=== PATIENT | female | born 1950 | race Caucasian/White ===

== ENCOUNTER 2020-01-19 08:41 | Observation (INO) | payer MEDICARE, OTHER ==
[~2020-01-19] VITALS: Ht 175.3 cm; Wt 122.5 kg
[~2020-01-19 08:41] MED LIST: APIDRA100 UNIT/2 SUB-Q; APRIDA; BUTALB-ACETAMI1 EACH PO; CYCLOBENZAPRINE10 MG PO; FAMOTIDINE20 MG PO; GLUCAGON EMERGEN1 MG INJ; HYDROXYZINE PAM50 MG PO; LANSOPRAZOLE30 MG PO; LEVOTHYROXINE200 MCG PO; LEVOXYL137 MCG PO; LIPITOR20 MG PO; LOMOTIL TABLET1 EACH PO; MUCINEX1200 MG PO; MULTI VITAMIN1 EACH PO; NARCAN4 MG NAS; OXYBUTYNIN CHLO10 MG PO; PREVACID30 MG PO; PROMETHAZINE HC25 M1 PO; REGLAN10 MG PO; SIMVASTATIN40 MG PO; TRAZODONE HCL50 MG PO; ULTRAM50 MG PO; VITAMIN D32000 UNI1 PO
--- OUTSIDE RECORDS SUMMARY | 2020-01-19 08:44 | XMS ---
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 E.DEzekiel VISIT COUNT (12 MO.) 1 SYLVAIN Mullen TOTAL 1 NOTE: Visits indicate total known visits. ED/UCC VISIT TRACKING (12 MO.) 01/19/2020 08:42 SYLVAIN [facility] [place] TYPE: Emergency COMPLAINT: - SOB, NAUSEA/VOMITING, ACHES/PAINS INPATIENT VISIT TRACKING (12 MO.) No inpatient visits to display in this time frame [email or web address]
[2020-01-19] MEDS ORDERED: APIDRA100 UNIT/2 (13:41)
[2020-01-19] MEDS ORDERED: MACRODANTIN100 MG PO (13:44)
[2020-01-19] MEDS ORDERED: MYRBETRIQ25 MG PO (13:45)
[2020-01-19] MEDS ORDERED: FIASP PENF100 UNIT/1 (13:46)
[2020-01-19] MEDS ORDERED: VENTOLIN HFA18 GM PO (13:50)
[2020-01-19] MEDS ORDERED: VOLTAREN100 GM TOP (13:52)
--- NOTE | 2020-01-19 13:55 | NUR ---
PT TO ROOM 126 VIA BINA CALVIN. PT TRANSFERED SELF TO BED.
--- NOTE | 2020-01-19 14:27 | NUR ---
PT UP TO BSC FOR LARGE BM. PTS O2 SATS DROPPED TO 84% WHILE UP TO COMMODE. RECOVERED ON HER OWN TO 91%. PT REPORTS SHE DOES NOT WANT TO WEAR THE OXYGEN NC AT THIS TIME LONG SHE MAINTAINS ON HER OWN.
--- NOTE | 2020-01-19 14:58 | NUR ---
REPORT TO RAUL PEREZ
--- NOTE | 2020-01-19 15:36 | NUR ---
patient lying on left side in bed. curious about further tests/exams to be done today. informed her of the plan for the day. slight nausea at times. reports cramping in her stomach and diarhea that is new.
--- NOTE | 2020-01-19 16:40 | NUR ---
5.52 units given via insulin pump for blood sugar of 232.
--- NOTE | 2020-01-19 19:20 | NUR ---
SHIFT REPORT RECEIVED FROM DUANE PEREZ. PT RESTING IN BED. NC @ 2L, SPO2 94%, RR 17. NO NEEDS AT THIS TIME. CALL LIGHT IN REACH.
--- NOTE | 2020-01-19 20:45 | NUR ---
ASSESSMENT, VS AND I&O COMPLETED. SPO2 94% ON 2L NC. UNABLE TO ASSESS, LUNG, HEART OR BOWEL TONES DUE TO PAPR. PULSES INTACT X4 EXTREMITIES. PT REPORTS CHRONIC NUMBNESS IN BLE. MOTOR INTACT IN ALL EXTREMITIES. IV CDI, WNL, FLUSHED WELL. HR SR @ 74. CAPILLARY REFILL < 3 SECONDS. PT UP TO BR, 1PA, BACK TO BED. URINE IS YELLOW, CLEAR, WITHOUT ODOR OR DYSUREA. PT REPORTS 5/10 ALVAREZ PAIN, PRN PAIN MED PROVIDED. PT REPORTS NAUSEA, PRN NAUSEA MED PROVIDED. SLEEP AID MED PROVIDED AT PT REQUEST. ICE WATER PROVIDED. NO OTHER NEEDS AT THIS TIME. CALL LIGHT IN REACH.
--- NOTE | 2020-01-19 22:00 | NUR ---
PT RESTING IN BED, EYES CLOSED. RR 22 EVEN, UNLABORED, SPO2 95% ON 2L NC. HR SR @ 90. CALL LIGHT IN REACH.
--- NOTE | 2020-01-20 00:01 | NUR ---
ASSESSMENT, VS AND I&O COMPLETED. NEW BAG OF IV FLUIDS PROVIDED, IV WNL, CDI. UNABLE TO ASSESS LUNG, HEART AND BOWEL TONES DUE TO PAPR. PT STATES SHE HAS MILD NAUSEA, NECK AND UPPER BACK MUSCLE SPASMS AND 4/10 ALVAREZ, FLEXERIL PROVIDED. SALTINES AND SUGAR FREE PUDDING PROVIDED. PT DECLINES TO USE BR AT THIS TIME. PT DENIES SOB AT THIS TIME, SPO2 95% ON 2L NC, TITRATED TO 1.5L NC. RR 22, EVEN, UNLABORED. HR SR @ 92. CBG 120 ON PATIENT'S OWN IMPLANTED DEVICE. PULSES AND MOTOR INTACT. CHRONIC NUMBNESS TO BLE UNCHANGED. NO OTHER NEEDS AT THIS TIME. CALL LIGHT IN REACH.
--- NOTE | 2020-01-20 01:19 | NUR ---
PT AWAKE IN ROOM, PLAYING ON PHONE. NC @ 1.5L, SPO2 94%, RR 24. HR SR @ 90. CALL LIGHT IN REACH.
--- NOTE | 2020-01-20 02:36 | NUR ---
PT RESTING IN BED, EYES CLOSED. RR 21, SPO2 95% ON 1.5L NC. HR SR @ 82. IV FLUIDS INFUSING PER ORDER. CALL LIGHT IN REACH.
--- NOTE | 2020-01-20 03:30 | NUR ---
PT RESTING IN BED, EYES CLOSED. RR 22, SPO2 95 ON NC @1.5L. HR SR @ 78. IV FLUIDS INFUSING PER ORDER. CALL LIGHT IN REACH.
--- NOTE | 2020-01-20 04:50 | NUR ---
PT RESTING IN BED, EYES CLOSED. RR 20, SPO2 92 ON NC @ 1.5L. HR SR @ 77. IV FLUIDS INFUSING PER ORDER. CALL LIGHT IN REACH.
--- NOTE | 2020-01-20 06:00 | NUR ---
ASSESSMENT, VS, I&O AND BLOOD DRAW COMPLETED, BLOOD SENT TO LAB. SPO2 95% ON 1.5L, TITRATED TO 1L. PT DID NOT HAVE SOB WITH TRIP TO AND BACK TO BED. IV WNL, CDI, CLAVE CHANGED. UNABLE TO ASSESS LUNG, HEART AND BOWEL TONES DUE TO PPE. SCHEDULED MED PROVIDED. PT HAS 6/10 ALVAREZ, TYLENOL PROVIDED. PT HAS NAUSEA, SCHEDULED MED PROVIDED. CHRONIC NUMBNESS IN BLE. MOTOR AND PULSES INTACT. IV FLUIDS INFUSING PER ORDER. PT STATES "I FEEL MUCH BETTER TODAY!" PT IS PROVIDED PUDDING AND COFFEE AT HER REQUEST. BLOOD GLUCOSE 87. PT DENIES ABD TENDERNESS AT THIS TIME. NO OTHER NEEDS AT THIS TIME. CALL LIGHT IN REACH.
--- NOTE | 2020-01-20 07:08 | PATH ---
[facility] [address], [place] [address] Signed ORDERING PHYSICIAN: Kala Martin MD PATIENT NAME: TERRI MEJIA GENDER: F : 1950 SPECIMEN(S): MOLECULAR PATHOLOGY RESULTS: SARS-CoV-2 Not Detected ADDITIONAL NOTES.: The Gaffney Fusion SARS-CoV-2 Assay is a multiplex real-time PCR (RT-PCR) in vitro diagnostic test intended for the qualitative detection of RNA from SARS-CoV-2 from individuals who meet COVID-19 clinical and/or epidemiological criteria. In general, SARS-CoV-2 RNA can be detected during the acute phase of infection. Positive results indicate the presence of SARS-CoV-2 RNA. Clinical correlation with patient history and other diagnostic information is necessary to determine patient infection status. Positive results do not rule out bacterial infection or co-infection with other viruses. Negative results do not preclude SARS-CoV-2 infection and should not be used as the sole basis for patient management decisions. Negative results must be combined with other clinical observations, patient history, and epidemiological information. The Gaffney Fusion SARS-CoV-2 Assay is not yet approved or cleared by the [place] FDA. When there are no FDA-approved or cleared tests available, and other criteria are met, FDA can make tests available under an emergency access mechanism called an Emergency Use Authorization (EUA). The EUA for this test is supported by the [place] of Health and Human Service's (HHS's) declaration that circumstances exist to justify the emergency use of in vitro diagnostics for the detection and/or diagnosis of the virus that causes COVID-19. This EUA will remain in effect for the duration of the COVID-19 declaration justifying emergency of IVDs, unless it is terminated or revoked by FDA, after which the test may no longer be used. The Gaffney Fusion SARS-CoV-2 Assay is for use only under EUA in US laboratories certified under the Clinical Laboratory Improvement Amendments of 1988 (CLIA) to perform high complexity tests. [facility] is certified under CLIA to perform high complexity PATIENT NAME: TERRI MEJIA PATHOLOGY DATE OF : [birth year] REPORT #: [id number] PHYSICIAN: ÓSCAR PATHOLOGY PCP: JANELLE CHU MD REPORT IS CONFIDENTIAL AND NOT TO BE RELEASED WITHOUT AUTHORIZATION [address] [address] Signed clinical laboratory testing. PERFORMING LABORATORY.: Molecular testing was performed by [facility] [place] [address] (Physical Education Professor: Garcia Ann D.O.; CLIA#: [id number]) Diagnostician: System Interface Pathologist Electronically Signed 01/20/2020 Copies: ~ PATIENT NAME: JEROME MEJIALEMUEL HOOD PATHOLOGY DATE OF : 50 REPORT #: [id number] PHYSICIAN: ÓSCAR BAUTISTA PCP: JANELLE CHU MD REPORT IS CONFIDENTIAL AND NOT TO BE RELEASED WITHOUT AUTHORIZATION
--- NOTE | 2020-01-20 09:22 | NUR ---
PT RESTING IN HER BED AND STATES HER ALVAREZ IS "BETTER" AT THIS TIME. SHE DID COMPLAIN OF SOME NAUSEA AND WAS MEDICATED ORDERED. PT DENIES ANY OTHER PROBLEMS TO INCLUDE NO SOB. SAT ON 1L WAS 97% AND O2 WAS REMOVED. SAT NOW ON RA IS 93%. UNABLE TO LISTEN TO HEART, LUNGS, AND ABD DUE TO PAPR. PT DENIES ANY PROBLEMS IN ANY OF THESE AREAS. SEE ASSESSMENT.
--- NOTE | 2020-01-20 11:02 | NUR ---
Pt resting her bed, she states her ALVAREZ is much better. She states she continues to have some nausea and was recently medicated, see emar. Pt denies any other problems.
--- NOTE | 2020-01-20 12:57 | NUR ---
BECAUSE OF COVID PRECAUTIONS, I AM UNABLE TO VISIT. WILL CONTINUE TO FOLLOW
--- NOTE | 2020-01-20 13:29 | NUR ---
PT RESTING IN HER BED AND STATES HER NAUSEA IS "GOOD" AFTER HAVING ATE LUNCH. SHE DENIES ANY OTHER NEW PROBLEMS.
[2020-01-20] MEDS ORDERED: KEFLEX500 MG PO (13:50)
--- NOTE | 2020-01-20 14:57 | NUR ---
Pt and her spouse given the discharge instructions with good understanding stated.
--- NOTE | 2020-01-20 21:21 | EKG ---
[facility] [address] [facility] [place], [place] [address] Signed Sinus tachycardia Otherwise normal ECG When compared with ECG of 24-JUN-2019 13:02, Vent. rate has increased BY 50 BPM Confirmed by MARLENI VANEGAS DO ([id number]) on 01/20/2020 9:21:35 PM Electronically Signed By: MARLENI VANEGAS DO 01/20/202120 PATIENT NAME: ROBERTOTERRILEMUEL HOOD Electrocardiogram DATE OF : 50 PHYSICIAN: MARLENI VANEGAS DO REPORT #: [id number] REPORT IS CONFIDENTIAL AND NOT TO BE RELEASED WITHOUT AUTHORIZATION
== END 2020-01-20 15:17 | disposition home or self-care (01) ==
LOC: ED 08:41 → CCU 08:43 → ED 12:41 → CCU 12:41
PROVIDERS: ADMIT Internal Medicine
DX: R06.02 Shortness of breath (principal); R00.0 Tachycardia, unspecified; D72.829 Elevated white blood cell count, unspecified; N39.0 Urinary tract infection, site not specified; E10.43 Type 1 diabetes mellitus with diabetic autonomic (poly)neuropathy; K31.84 Gastroparesis; E10.22 Type 1 diabetes mellitus with diabetic chronic kidney disease; N18.3 Chronic kidney disease, stage 3 (moderate); E03.9 Hypothyroidism, unspecified; E78.5 Hyperlipidemia, unspecified; R74.8 Abnormal levels of other serum enzymes; M79.7 Fibromyalgia; G89.4 Chronic pain syndrome; Z20.828 Contact with and (suspected) exposure to other viral communicable diseases; Z88.8 Allergy status to other drugs, medicaments and biological substances; Z88.0 Allergy status to penicillin; Z88.5 Allergy status to narcotic agent; Z79.899 Other long term (current) drug therapy
CPT/HCPCS: 71045; 71260; 80053; 83605; 83735; 83880; 84484; 85025; 85379; 93005; 93010; 93306; 96361; 96372; 99285-25; A9270; C9803; G0378; J0696; J1650; J2405; J2550; J7030; J7121; Q9967

== ENCOUNTER 2020-02-01 02:49 | Emergency (ER) | payer MEDICARE, OTHER ==
[~2020-02-01] VITALS: Ht 175.3 cm; Wt 120.2 kg
[~2020-02-01 02:49] MED LIST changes: +APIDRA100 UNIT/2; +FIASP PENF100 UNIT/1; +KEFLEX500 MG PO; +MACRODANTIN100 MG PO; +MYRBETRIQ25 MG PO; +VENTOLIN HFA18 GM PO; +VOLTAREN100 GM TOP
--- OUTSIDE RECORDS SUMMARY | 2020-02-01 02:52 | XMS ---
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 Care History Medical/Surgical 01/20/2020 [facility] - Patient is currently established with [facility]. If patient is seen in the ED during business hours. Please contact CHWs at [facility]. Care Recommendation: If this patient has had 5 or more Emergency Department visits in the last 12 months.\T\nbsp; Patient will require education on the scope and purpose of the ED as an acute care provider not a Primary Care Provider and should not be utilized for chronic conditions.\T\nbsp; These are guidelines and the provider should exercise clinical judgment when providing care. 01/20/2020 [facility] Shortness of breath for 12 hours.\T\nbsp; Pt admitted under observation awaiting COVID 19 test results. [facility] NOTE: Visits indicate total known visits. 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
[2020-02-01] MEDS ORDERED: NORCO 5-325 TA1 EACH PO (04:31)
== END 2020-02-01 05:10 | disposition home or self-care (01) ==
LOC: ED 02:49
PROC: 0QSGXZZ Reposition Right Tibia, External Approach (ICD-10-PCS; principal; 2020-02-01)
PROC: 0QSJXZZ Reposition Right Fibula, External Approach (ICD-10-PCS; 2020-02-01)
PROC: 0QSGXZZ Reposition Right Tibia, External Approach (ICD-10-PCS; 2020-02-01)
DX: S82.851A Displaced trimalleolar fracture of right lower leg, initial encounter for closed fracture (principal); E11.40 Type 2 diabetes mellitus with diabetic neuropathy, unspecified; E11.43 Type 2 diabetes mellitus with diabetic autonomic (poly)neuropathy; K31.84 Gastroparesis; E03.9 Hypothyroidism, unspecified; Z87.891 Personal history of nicotine dependence; Z88.8 Allergy status to other drugs, medicaments and biological substances; Z88.0 Allergy status to penicillin; Z88.5 Allergy status to narcotic agent; Z79.899 Other long term (current) drug therapy; Z79.4 Long term (current) use of insulin; W19.XXXA Unspecified fall, initial encounter
CPT/HCPCS: 27818; 73600; 73610; 99283-25; J2405; J2704; J3010

== ENCOUNTER 2020-07-24 05:40 | Day surgery (SDC) | payer MEDICARE ==
--- NOTE | 2020-07-20 17:30 | NUR ---
SAW PT IN THE PRE ADMIT OFFICE DUE TO DR MCNEIL OFFICE ADDED PT TO SURGERY SCHEDULE AFTER 16:00 ON THIS DAY. HAD PT RECEIVE A CXR, EKG AN OUT PATIENT DUE TO UNABLE TO OBTAIN SURGICAL ACCOUNT.
[~2020-07-24] VITALS: Ht 175.3 cm; Wt 120.0 kg
[~2020-07-24 05:40] MED LIST changes: +NORCO 5-325 TA1 EACH PO
[2020-07-24] MEDS ORDERED: PREVACID30 M1 PO (06:03)
[2020-07-24] MEDS ORDERED: OXYBUTYNIN CHLO10 MG PO (06:03)
[2020-07-24] MEDS ORDERED: VITAMIN D325 MCG PO (06:04)
[2020-07-24] MEDS ORDERED: CALCIUM500 MG PO (06:04)
--- NOTE | 2020-07-24 09:29 | NUR ---
PT ALERT, ORIENTED AND HAS WAITING IN CAR FOR HER FOLLOWING DC. PT SEEMS INFORMED, ALL QUESTIONS ASKED ANSWERED. PT DID REQUEST PRAYER.
--- NOTE | 2020-07-24 11:37 | NUR ---
07/24/20 1137 Glenna Cheung 1046 PT ARRIVED IN PACU NON RESPONSIVE TO NOXIOUS STIMULI WITH OPA IN PLACE. 1055 PT REACTIVE. OPA REMOVED. 1100 PT ATTACHED OWN INSULIN PUMP. BLOOD SUGAR 198. 1110 DR AT BEDSIDE. NEW ORDER TO TROY ELLIS AT 1130. 1125 TO DS. REPORT GIVEN TO ANA.
--- NOTE | 2020-07-24 11:43 | NUR ---
PT TO ROOM VIA STRETCHER WITH ANA ANDERSON. PT AWAKE AND ORIENTED. DENIES PAIN. VS STABLE. REMOVED ELLIS PER ORDER AT 1140. HAD APPROX 125ML LIGHT PINK URINE IN BAG. PT PUT HER DEPENDS ON SHE LEAKS. CALL LIGHT IN REACH. HER INSULIN PUMP READS 199.
[2020-07-24] MEDS ORDERED: CEFDINIR300 MG PO (12:38)
[2020-07-24] MEDS ORDERED: ULTRAM50 MG PO (12:39)
--- NOTE | 2020-07-24 12:58 | NUR ---
PT DISCHARGED HOME WITH . PT ABLE TO DRESS WITH ASSISTANCE OF . DENIES CONCERNS. WAS ABLE TO VOID WO DIFFICULTY. IV REMOVED BY RNS JOVON. WHEELED TO CAR.
--- NOTE | 2020-07-31 09:35 | OR ---
[address] [address] Signed DATE OF OPERATION: 07/24/2020 SURGEON: Zahra Mcneil MD PREOPERATIVE DIAGNOSES: 1. Incidental finding of severe left hydroureteronephrosis. 2. Recurrent urinary tract infections. 3. Urinary incontinence. POSTOPERATIVE DIAGNOSES: 1. Incidental finding of severe left hydroureteronephrosis. 2. Recurrent urinary tract infections. 3. Urinary incontinence. 4. Denuded bladder lesion x2. NAMES OF PROCEDURES: 1. Diagnostic cystoscopy with bilateral retrograde pyelogram. 2. Left diagnostic ureteroscopy. 3. Insertion of indwelling left ureteral stent. 4. Bladder biopsy. ANESTHESIA: General. ESTIMATED BLOOD LOSS: Minimal. COMPLICATIONS: None. SPECIMENS: Approximately 5 samples of bladder wall specimens taken in areas of well-circumscribed denuded bladder mucosa. DRAINS: A 6 x 26 cm double-J ureteral stent inserted into the left ureter. COMPLICATIONS: None. Electronically Signed By: ZAHRA MCNEIL MD 07/31/20 0935 PATIENT NAME: TERRI ULLOA OPERATIVE REPORT DATE OF : 50 REPORT #: [id number] PHYSICIAN: ZAHRA MCNEIL MD PCP: LILLY CROWLEY MD REPORT IS CONFIDENTIAL AND NOT TO BE RELEASED WITHOUT AUTHORIZATION [address] [address] Signed INDICATIONS FOR PROCEDURE: Ms. Ulloa is a very pleasant 70-year-old female with a history of nephrolithiasis and multiple abdominal surgeries, who recently presented to me upon referral from Dr. Lilly Crowley for evaluation of recurrent urinary tract infections and urinary incontinence symptoms. As part of her workup, she underwent a renal bladder ultrasound, which incidentally revealed [id number] hydronephrosis of the left kidney. The patient immediately underwent a noncontrast CT of the abdomen and pelvis. She did not receive any IV contrast because of her chronic kidney disease. A CT scan revealed a severely hydronephrotic left kidney with a sudden change in caliber of her severely dilated left ureter around 2 cm above the bladder. There was no obvious stone noted as the cause for her obstruction. Of note, however, there were a couple of stones noted within the left renal pelvis at that time, but these were not obstructing. The patient denies any flank pain or recent gross hematuria. However, she has been experiencing urinary tract infections for quite some time now. Of note, she did pass a kidney stone on the left side successfully in 2017. She presents today to undergo further evaluation of her hydronephrosis and to undergo likely ureteral stent implantation. OPERATIVE FINDINGS: 1. On cystoscopy, there was no evidence of any overt bladder masses, however, there are 2 well-circumscribed 3 to 4 cm sized well-denuded bladder lesions that are quite impressive. One is located just above the trigone of the bladder and the other one is on the posterior wall of the bladder. As stated, they appear to be actively denuded areas of bladder mucosa and are very well circumscribed. Bilateral ureteral orifices are in their normal anatomic location and the right ureteral orifice is noted to be effluxing normally. I do not appreciate any efflux from the left ureteral orifice. 2. Right retrograde pyelogram was performed, which revealed a normal ureter and renal pelvis without any calyceal blunting or filling defects. Left retrograde pyelogram revealed an approximately 1 cm narrowing of the left ureter. Proximal to the narrowing, there was severe dilation of the left ureter and left kidney. It was severe enough that it was difficult to injecting of contrast into the system for it to be noticeable on pyelogram. 3. Diagnostic ureteroscopy revealed what appeared to be a tight area about 2 cm above the bladder consists, mostly consistent with what appears to be a stricture. There is also a lot of denuded necrotic tissue associated with this area. Once within the proximal ureter, there was also noted a significant amount of denuded and necrotic tissue noted that seems to be coming from the left renal pelvis. 4. A 6 x 26 cm double-J ureteral stent was passed into the left collecting system without difficulties. 5. A cold cup biopsy forceps was used to obtain multiple specimens from both well-circumscribed lesions within the bladder. At the end the procedure, an 18-Belgian Adhikari catheter was inserted into the patient's bladder and connected to gravity drainage. Electronically Signed By: ZAHRA MCNEIL MD 07/31/20 0935 PATIENT NAME: TERRI ULLOA OPERATIVE REPORT DATE OF : 50 REPORT #: [id number] PHYSICIAN: ZAHRA MCNEIL MD PCP: LILLY CROWLEY MD REPORT IS CONFIDENTIAL AND NOT TO BE RELEASED WITHOUT AUTHORIZATION [address] [address] Signed DESCRIPTION OF PROCEDURE: After informed consent was obtained, the patient was taken back to the operating room. She was transferred from the [facility] to the operating room where general anesthesia was then induced. She was placed in the dorsal lithotomy position and her genitalia were prepped and draped in a standard sterile fashion. Using a 30-degree lens on a 23-1/2-Belgian introducer, rigid cystoscope was inserted through her urethra and into her bladder under direct visualization. Panendoscopic views of the bladder were then obtained. Please see above findings. Despite noting the denuded areas of epithelium, I chose to focus on the left ureter at this time. Bilateral retrograde pyelograms were then performed, the right being performed 1st and then followed by the left retrograde pyelogram. Please see above findings. I then advanced a semi-rigid ureteroscope into the bladder and up into the left ureteral orifice. Immediately upon entering the ureter, there was a minor amount of hemorrhage noted and it appeared to me that the left distal ureter and ureteral orifice were extremely friable due to some type of inflammation. This was noted at the time of the left retrograde pyelogram. I advanced my scope a couple of cm up and then I hit what appeared to be a kink in the ureter. I found my way through the passage and noted that it got fairly stenotic for about a cm or so. I passed the scope into the dilated ureter proximal to the stricture. I then was able to appreciate a significant amount of necrotic and denuded tissue suggesting that this kidney had not been draining properly for quite some time. Because of all the irritation and inflammation of the distal left ureter, I made the decision to forego additional ureteroscopy and instead place a stent to help drain the significant amount of material noted within the left collecting system. I passed a 0.035 Sensor wire into the left ureter using the ureteroscope. The semi-rigid ureteroscope was then removed fully intact. Over the existing wire, I passed a 6 x 26 cm double-J ureteral stent into the left ureter under direct visualization. The stent passed easily and an adequate proximal coil was noted within the left renal pelvis once the wire was pulled. An adequate distal coil was noted on cystoscopy. I then turned my attention to the 2 well-circumscribed denuded lesions in the bladder. A cold cup biopsy forceps was used to obtain around 5 separate specimens from areas in both lesions. Again, the lesions did not appear to be carcinogenic. However, they appear more to be related to an infectious process. The lesions are pale in appearance and appeared to be actively denuding bladder mucosa. Once the biopsies are obtained, I did cauterize the biopsy beds using a Bugbee cautery. The patient's bladder was then drained and then a repeat cystoscopy was performed to ensure that adequate hemostasis had been achieved. The cystoscope was then removed and then an 18-Belgian 2-way Adhikari catheter was inserted and connected to gravity drainage. The procedure was then terminated. The patient tolerated the procedure well without any complication. She will now be transferred to the postanesthesia care unit in stable condition. DISPOSITION: Electronically Signed By: ZAHRA MCNEIL MD 07/31/20 0935 PATIENT NAME: TERRI ULLOA OPERATIVE REPORT DATE OF : 50 REPORT #: [id number] PHYSICIAN: ZAHRA MCNEIL MD PCP: LILLY CROWLEY MD REPORT IS CONFIDENTIAL AND NOT TO BE RELEASED WITHOUT AUTHORIZATION [address] [address] Signed I discussed the details of today's procedure with both the patient and her and answered all of their questions. I told them that at this time, I did not see any obvious mass in the ureter that would be contributing to the stricture. 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 I suspect this could be related to passage of a stone a few years ago on that side. I also plan to discuss with Radiology the possibility of administering IV contrast to this patient via CT IVP if that would be possible in order to rule out a potential malignant association with this stricture. She was sent home today with cefdinir for an additional 7 days and was also given 10 days worth of fluconazole for treatment of what appears to be a fungal UTI, diagnosed on July 23 in the clinic. She will be scheduled to return to clinic in 3 weeks in order to fill out paperwork in preparation for left ureteroscopy and with complete diagnostic nephroureteroscopy and possible biopsy. Zahra Mcneil MD AR/MODL /[id number] Copies: ~ Electronically Signed By: ZAHRA MCNEIL MD 07/31/20 0935 PATIENT NAME: TERRI ULLOA OPERATIVE REPORT DATE OF : 50 REPORT #: [id number] PHYSICIAN: ZAHRA MCNEIL MD PCP: LILLY CROWLEY MD REPORT IS CONFIDENTIAL AND NOT TO BE RELEASED WITHOUT AUTHORIZATION
--- NOTE | 2020-08-02 16:45 | PATH ---
[facility] [address] [facility] [place], [place] [address] Signed THIS IS AN ADDENDUM REPORT SPECIMEN(S): A DENUDED BLADDER LESIONS SPECIMEN SOURCE: A. DENUDED BLADDER LESIONS CLINICAL HISTORY: Pre: Hydronephrosis of left kidney. Post: Bladder lesions x2, severe left hydroureteronephrosis. REASON FOR AMENDMENT: This report is amended to clarify a typographical error in the diagnosis. The word "mucosa" was inadvertently left out of the final diagnosis. The change is underlined. The remainder of the report is unchanged. 08/01/2020 FINAL PATHOLOGIC DIAGNOSIS: Bladder, designated "Denuded bladder lesions", biopsy: - Polypoid and fragmented keratinizing squamous mucosa with focal acute and chronic inflammation, hyperkeratosis and subepithelial chronic inflammation. - Fragments of keratinaceous debris. - See Comment. COMMENT: No urothelium is present for evaluation. The findings could represent keratinizing squamous metaplasia of the urothelium. Correlation with cystoscopy findings is recommended. NAL:cml:C2NR MICROSCOPIC EXAMINATION: Histologic sections of all submitted blocks are examined by light microscopy. These findings, together with the gross examination, support the pathologic diagnosis. GROSS DESCRIPTION: The specimen, labeled "TD," and designated on the requisition "denuded bladder lesion 2," is received in formalin and consists of multiple fragments of white-worley soft tissue (1.0 x 0.6 x 0.2 cm in aggregate). The specimen is submitted entirely in cassette A1. AC (under the direct supervision of a pathologist) PATIENT NAME: TERRI MEJIA PATHOLOGY DATE OF : 50 REPORT #: [id number] PHYSICIAN: ÓSCAR PATHOLOGY PCP: JANELLE CHU MD REPORT IS CONFIDENTIAL AND NOT TO BE RELEASED WITHOUT AUTHORIZATION [facility] [address] [place] [address] Signed The Gross Description was prepared using a voice recognition system. The report was reviewed for accuracy; however, sound-alike word errors, addition and/or deletions may occur. If there is any question about this report, please contact Client Services. PERFORMING LABORATORY: The technical component was performed by [facility], [address] [place] [id number] (Cardiac Cath Lab Technologist: Shana Brooks MD; CLIA# [id number]). [facility], [address] [place] [address] (CLIA# [id number]). COMMENT: A PAS/D stain (with appropriately staining controls) highlights fungal organisms within the keratin fragments and the superficial keratin layer of the squamous epithelium. Fungal organisms are not seen infiltrating the epithelium or subepithelial connective tissue. As part of [employer] [facility]' Quality Improvement Program, this case was reviewed by another member of our pathology staff. NAL:vlg [facility], [address] [place] [address] (CLIA# [id number]). REASON FOR ADDENDUM: To report results of PAS/D stain. Diagnostician: Ashley Abel MD Pathologist Electronically Signed 08/02/2020 Copies: ~ PATIENT NAME: TERRI MEJIA ERWIN PATHOLOGY DATE OF : 50 REPORT #: [id number] PHYSICIAN: ÓSCAR PATHOLOGY PCP: JANELLE CHU MD REPORT IS CONFIDENTIAL AND NOT TO BE RELEASED WITHOUT AUTHORIZATION
[2020-11-16] MEDS ORDERED: EXCEDRIN MIGRA1 EAC2 PO (11:29)
[2020-11-24] MEDS ORDERED: FIASP 100100 UNIT/1 SQ (14:58)
[2020-11-24] MEDS ORDERED: REGLAN10 MG PO (14:58)
[2020-11-24] MEDS ORDERED: HYDROXYZINE PAM50 MG PO (14:59)
[2020-11-24] MEDS ORDERED: LOMOTIL TABLET1 EACH PO (15:00)
[2020-11-24] MEDS ORDERED: EXCEDRIN MIGRA1 EAC2 PO (15:00)
[2020-11-24] MEDS ORDERED: FAMOTIDINE20 MG PO (15:01)
[2020-11-24] MEDS ORDERED: DECARA625 MCG PO (15:02)
[2020-11-24] MEDS ORDERED: PROMETHAZINE HC25 M1 PO (15:03)
== END 2020-07-24 12:50 | disposition home or self-care (01) ==
LOC: OPS 05:40 → DS 05:40 → OPS 06:01
PROVIDERS: ATTEND Urology
PROC: 0TBB8ZX Excision of Bladder, Via Natural or Artificial Opening Endoscopic, Diagnostic (ICD-10-PCS; principal; 2020-07-24 06:45)
PROC: 0T9780Z Drainage of Left Ureter with Drainage Device, Via Natural or Artificial Opening Endoscopic (ICD-10-PCS; 2020-07-24 06:45)
DX: D41.4 Neoplasm of uncertain behavior of bladder (principal); N13.6 Pyonephrosis; E10.42 Type 1 diabetes mellitus with diabetic polyneuropathy; E10.22 Type 1 diabetes mellitus with diabetic chronic kidney disease; E10.43 Type 1 diabetes mellitus with diabetic autonomic (poly)neuropathy; N18.30 Chronic kidney disease, stage 3 unspecified; K31.84 Gastroparesis; Z79.4 Long term (current) use of insulin; Z96.41 Presence of insulin pump (external) (internal); K21.9 Gastro-esophageal reflux disease without esophagitis; E78.00 Pure hypercholesterolemia, unspecified; E03.9 Hypothyroidism, unspecified; J44.9 Chronic obstructive pulmonary disease, unspecified; G89.29 Other chronic pain; Z90.711 Acquired absence of uterus with remaining cervical stump; Z87.891 Personal history of nicotine dependence; Z88.0 Allergy status to penicillin; Z88.8 Allergy status to other drugs, medicaments and biological substances; Z91.048 Other nonmedicinal substance allergy status; Z96.82 Presence of neurostimulator; Z79.891 Long term (current) use of opiate analgesic
CPT/HCPCS: 00918; 74420; 88305; 88312; C1769; C2617; J0330; J0690; J1100; J1885; J2250; J2405; J2704; J2765; J3010; J7121; Q9967

== ENCOUNTER 2020-11-27 08:10 | Day surgery (SDC) | payer MEDICARE, OTHER ==
[~2020-11-27] VITALS: Ht 175.3 cm; Wt 118.2 kg
[~2020-11-27 08:10] MED LIST changes: +CALCIUM500 MG PO; +CEFDINIR300 MG PO; +DECARA625 MCG PO; +EXCEDRIN MIGRA1 EAC2 PO; +FIASP 100100 UNIT/1 SQ; +PREVACID30 M1 PO; +VITAMIN D325 MCG PO
[2020-11-27] MEDS ORDERED: CEFDINIR300 MG PO (08:30)
--- NOTE | 2020-11-27 10:12 | NUR ---
11/27/20 1012 Joyce Carnes 1008- PT ARRIVES TO PACU. AROUSABLE TO VOICE. FALLS INSTANTLY BACK TO SLEEP WHEN NOT BEING TALKED TO. RESP EVEN AND UNLABORED. OXYGEN SAT HIGH 90'S TO 100% ON 10L VIA MASK. 1010- CBG 255 TAKEN BY BROOK[place]NN TO RN. GURPREET PAEZ, SENIOR TECHNICAL RECRUITER AT THE BEDSIDE AND AWARE. 1012- OXYGEN TITRATED DOWN TO 6L VIA MASK.
--- NOTE | 2020-11-27 10:54 | NUR ---
PT IS BACK TO DS FROM PACU. CALL LIGHT WITHIN REACH. WATER ON BEDSIDE TABLE. NO C/O'S PAIN. SHE RECONNECTS HER INSULIN PUMP AND PUTS HER TEETH BACK IN. NO ADDTIIONAL NEEDS AT THIS TIME.
--- NOTE | 2020-11-27 11:07 | NUR ---
PT BACK TO BED AFTER USING COMMODE. DRAINED FOR 300ML CLEAR YELLOW URINE. PT COMFORTABLE WITHOUT NEEDS AT THIS TIME. CALL LIGHT WITHIN REACH
--- NOTE | 2020-11-27 11:07 | NUR ---
1100: PT PROVIDED URINAL REQUESTED, 125ML VOID DRAINED. NO FURTHER NEEDS VOICED, CALL LIGHT WITHIN REACH
--- NOTE | 2020-11-27 12:00 | NUR ---
PT IS GIVEN VERBAL DC INSTRUCTIONS WITH IN THE ROOM. THEY BOTH VERBALIZE UNDERSTANDING. NO QUESTIONS AT THIS TIME. SHE IS EDUCATED ON HOW TO BEST DRESS HERSELF AND TO OPEN THE CURTAIN WHEN READY TO GO.
--- NOTE | 2020-11-27 12:13 | NUR ---
PT IS TAKEN TO PERSONAL VEHICLE VIA WC, SHE IS ABLE TO TRANSFER HERSELF FROM WC TO VEHICLE.
--- NOTE | 2020-11-29 08:09 | OR ---
[facility] [address] [place], [place] [address] Signed DATE OF OPERATION: 11/27/2020 SURGEON: Zahra Mcneil MD PREOPERATIVE DIAGNOSES: 1. Two cm distal left ureteral stricture with associated hydroureteronephrosis. 2. Persistent left flank pain after failure of dilation of left ureteral stricture. 3. Recurrent urinary tract infections. POSTOPERATIVE DIAGNOSES: 1. Two cm distal left ureteral stricture with associated hydroureteronephrosis. 2. Persistent left flank pain after failure of dilation of left ureteral stricture. 3. Recurrent urinary tract infections. NAMES OF PROCEDURES: 1. Diagnostic cystoscopy with left retrograde pyelogram. 2. Insertion of 6 x 26 cm double-J ureteral stent into the left collecting system. ANESTHESIA: General. ESTIMATED BLOOD LOSS: None. COMPLICATIONS: None. SPECIMENS: None. DRAINS: A 6 x 26 cm double-J ureteral stent inserted in the left collecting system. INDICATIONS FOR PROCEDURE: Ms. Ulloa is a very pleasant 70-year-old female, who is well known to me. She initially presented to me for evaluation of recurrent urinary tract infections. As part of her workup, she underwent a renal ultrasound, which reveals severe left-sided hydroureteronephrosis down to the level of the distal left ureter. She subsequently underwent a non-contrasted CT of the abdomen and pelvis, which did not reveal any evidence of active ureteral obstruction, secondary to ureteral calculus. She is unable Electronically Signed By: ZAHRA MCNEIL MD 11/29/20 0809 PATIENT NAME: TERRI ULLOA OPERATIVE REPORT DATE OF : 50 REPORT #: [id number] PHYSICIAN: ZAHRA MCNEIL MD PCP: JANELLE CHU MD REPORT IS CONFIDENTIAL AND NOT TO BE RELEASED WITHOUT AUTHORIZATION [facility] [address] [place], [place] [address] Signed to receive IV contrast due to her chronic kidney disease. She subsequently underwent cystoscopy with left ureteroscopy and balloon dilation of her distal left ureter. Ureteroscopy revealed no evidence of any tumor or mass within the distal left ureter. She was balloon dilated at that time and a stent was placed for approximately a month. She ultimately underwent removal of the indwelling ureteral stent, but soon thereafter experienced severe left-sided flank pain. Repeat imaging revealed the hydroureteronephrosis of the left kidney had returned, presumably secondary to recurrence of her distal left ureteral stricture. Since that time, the patient has been referred to an endo urologist at [facility] for definitive management of her left ureteral stricture. In the mean time, she has requested that a ureteral stent be placed back into her left collecting system to allow for proper drainage of her left kidney and I have agreed with her request. She presents today to undergo repeat left retrograde pyelogram and placement of another indwelling ureteral stent. FINDINGS: 1. On cystoscopy, there was no evidence of any suspicious masses, lesions, or stones. Bilateral ureteral orifices are in their normal anatomic location. I do not appreciate any active efflux of urine from the left ureteral orifice. 2. Left retrograde pyelogram was performed, which again reveals the presence of a tight 2 cm distal left ureteral stricture with associated severe hydroureteronephrosis. This appears quite similar to the previous picture obtained before placement of her initial stent. 3. A 6 x 26 cm double-J ureteral stent was inserted into the left ureter under direct visualization with a good deal of resistance upon insertion of the stent through the stricture on the left side. DESCRIPTION OF PROCEDURE: After informed consent was obtained, the patient was taken back to the operating room. She was transferred from the [facility] to the operating room table, where general anesthesia was induced. She was placed in the dorsal lithotomy position and her genitalia were prepped and draped in the standard sterile fashion. Using a 30-degree lens on a 22.5-Cook Islander introducer, rigid cystoscope was inserted through the urethra and into her bladder under direct visualization. Panendoscopic views of the bladder were then obtained. Please see above findings. Attention was turned to the left ureteral orifice. A cone-tipped catheter was used to perform a left retrograde pyelogram. Please see above findings. I then used a 0.035 Sensor wire to cannulate the left ureter. I was able to pass a wire through the stricture and up into the left renal pelvis. Placement of the wire was confirmed on fluoroscopy. Over the wire, I passed a 6 x 26 cm double-J ureteral stent into the left ureter with some resistance noted upon passage of the stent through the stricture. Ultimately, the stent mated up into the kidney successfully and an adequate proximal coil was seen on fluoroscopy once the Sensor wire was pulled. An adequate distal coil was noted on cystoscopy and on Electronically Signed By: ZAHRA MCNEIL MD 11/29/20 0809 PATIENT NAME: TERRI ULLOA OPERATIVE REPORT DATE OF : 50 REPORT #: [id number] PHYSICIAN: ZAHRA MCNEIL MD PCP: JANELLE CHU MD REPORT IS CONFIDENTIAL AND NOT TO BE RELEASED WITHOUT AUTHORIZATION [address] [address] Signed fluoroscopy. The patient's bladder was then drained and the cystoscope was removed. The procedure was then terminated. The patient tolerated the procedure well without any complication. She will now be transferred to the postanesthesia care unit in stable condition. DISPOSITION: I discussed the details of today's procedure with the patient and her and answered all of their questions. She is scheduled for her 1st consultation with an endourologist at [facility] on December 13. I explained to her in detail today that she has an approximately 2 cm distal left ureteral stricture that I do not believe is related to an external compression from the tumor. I suspect that she passed a stone down from the left kidney at some point in time, which resulted in damage to the distal left ureter and subsequent stricture. However, she has never been able to undergo contrasted CT scan to confirm without doubt the presence of any additional pathology going on in that area. The patient's verbalized understanding of this concept today. She will not be given any new prescriptions today as she already has enough tramadol for pain and she was recently given oral cefdinir for another urinary tract infection. She will contact the clinic to be scheduled to see me in followup when she undergoes definitive treatment of her distal left ureteral stricture. MD NANO Levine/AGNIESZKA /[id number] Copies: ~ Electronically Signed By: ZAHRA MCNEIL MD 11/29/20 0809 PATIENT NAME: TERRI ULLOA OPERATIVE REPORT DATE OF : 50 REPORT #: [id number] PHYSICIAN: ZAHRA MCNEIL MD PCP: JANELLE CHU MD REPORT IS CONFIDENTIAL AND NOT TO BE RELEASED WITHOUT AUTHORIZATION
== END 2020-11-27 12:05 | disposition home or self-care (01) ==
LOC: OPS 08:10 → DS 08:10 → OPS 10:00 → DS 10:00 → OPS 12:05
PROVIDERS: ATTEND Urology
PROC: 0T778DZ Dilation of Left Ureter with Intraluminal Device, Via Natural or Artificial Opening Endoscopic (ICD-10-PCS; principal; 2020-11-27 10:00)
DX: N13.6 Pyonephrosis (principal); E10.22 Type 1 diabetes mellitus with diabetic chronic kidney disease; N18.30 Chronic kidney disease, stage 3 unspecified; E10.42 Type 1 diabetes mellitus with diabetic polyneuropathy; E10.43 Type 1 diabetes mellitus with diabetic autonomic (poly)neuropathy; K31.84 Gastroparesis; E03.9 Hypothyroidism, unspecified; K21.9 Gastro-esophageal reflux disease without esophagitis; E78.00 Pure hypercholesterolemia, unspecified; G89.29 Other chronic pain; M79.7 Fibromyalgia; J44.9 Chronic obstructive pulmonary disease, unspecified; Z88.5 Allergy status to narcotic agent; Z88.0 Allergy status to penicillin; Z88.8 Allergy status to other drugs, medicaments and biological substances; Z91.048 Other nonmedicinal substance allergy status; Z87.440 Personal history of urinary (tract) infections; Z96.82 Presence of neurostimulator; Z87.891 Personal history of nicotine dependence; Z96.41 Presence of insulin pump (external) (internal)
CPT/HCPCS: 00918; 74420; C1769; C2617; J0690; J1100; J1885; J2250; J2405; J2704; J2765; J3010; J7121; Q9967

== ENCOUNTER 2021-05-14 07:17 | Day surgery (SDC) | payer MEDICARE, OTHER ==
[~2021-05-14] VITALS: Ht 175.3 cm; Wt 127.0 kg
--- NOTE | 2021-05-14 08:35 | NUR ---
ANSWERED CALL LIGHT PT NEEDING TO VOID, PT REPORTS SHE IS NOT ABLE TO WALK, BROUGHT COMOD IN ROOM PT WAS ABLE TO VOID, A GOOD AMOUT OF CLEAR YELLOW URINE
--- NOTE | 2021-05-14 11:02 | NUR ---
05/14/21 1102 Shara Oakley 1052 PT ARRIVED TO PACU ON 10L VIA MASK, VSS. ORAL AIRWAY IN PLACE AND RESP EVEN AND UNLABORED. PT NONAROUSABLE. 1053 O2 DECREASED TO 6L. 1056 PT OPENS HER EYES AND ORAL AIRWAY REMOVED. PT FALLS RIGHT BACK TO SLEEP. 1101 PT WAKES AND IS REORIENTED TO PACU. PT EASILY FALLS BACK TO SLEEP O2 REMOVED.
--- NOTE | 2021-05-14 11:40 | NUR ---
1125: PT RETURNS TO DAY SURGERY ROOM 12 VIA STRETCHER FROM PACU. AWAKE AND ALERT ON ARRIVAL, HOLDS APPROPRIATE CONVERSTATION. VSS, RESP EVEN AND UNLABORED ON RA. DENIES NAUSEA AND REPORTS NYASIA PAIN LEVEL AT THIS TIME, 08/30. FILLING PAPER PRESCRIPTION AT THIS TIME. CRACKERS AND ICE WATER PROVIDED. PT WITHOUT NEEDS OR REQUESTS AT THIS TIME. CALL LIGHT WITHIN REACH
--- NOTE | 2021-05-14 12:35 | NUR ---
1215: PT WITH URGE TO URINATE. DANGLES AT THE BEDSIDE, NYASIA WELL. DENIES DIZZINESS AND SOB. AMBULATES TO BR WITH STANDBY ASSIST. SUCCESSFUL FIRST POST OP VOID, 300ML. 1230: VSS, RESP EVEN AND UNLABORED. NO CHANGE TO PAIN LEVEL. DENIES NAUSEA. PT STATES "I'M READY TO GO HOME!". SL REMOVED WITH CATH TIP INTACT AND PRESSURE APPLIED TO SITE. PT PREPARES FOR DC INDEPENDENTLY
--- NOTE | 2021-05-14 12:39 | OR ---
[facility] [address] [facility] [place], [place] [address] Signed DATE OF OPERATION: 05/14/2021 SURGEON: Zahra Mcneil MD PREOPERATIVE DIAGNOSES: Distal left ureteral stricture with associated ascuhelk-pl-fxwsrd hydronephrosis. POSTOPERATIVE DIAGNOSIS: Distal left ureteral stricture with associated aocjrpgc-dc-aiiotp hydronephrosis. NAMES OF PROCEDURES: 1. Diagnostic cystoscopy with left retrograde pyelogram. 2. Left ureteral stent exchange. 3. Cystogram. ANESTHESIA: General. ESTIMATED BLOOD LOSS: None. COMPLICATIONS: None. SPECIMENS: None. DRAINS: A 6 x 26 cm double-J ureteral stent inserted into the left collecting system. INDICATIONS FOR PROCEDURE: Ms. Ulloa is a very pleasant 71-year-old female with a history of chronic kidney disease as well as a long distal left ureteral stricture associated with a previously passed left ureteral calculus. She underwent failed ureteral dilation in the past and has since been referred to a subspecialist reconstructionist over at [facility] who is requesting a cystogram at the time of her left ureteral stent exchange. For now, she has requested serial left ureteral stent exchanges; however, she is considering definitive reconstructive surgery. She does have an active UTI today; however, she is asymptomatic. Electronically Signed By: ZAHRA MCNEIL MD 05/14/21 1239 PATIENT NAME: TERRI ULLOA OPERATIVE REPORT DATE OF : 50 REPORT #: [id number] PHYSICIAN: ZAHRA MCNEIL MD PCP: JANELLE CHU MD REPORT IS CONFIDENTIAL AND NOT TO BE RELEASED WITHOUT AUTHORIZATION [facility] [address] [place], [place] [address] Signed OPERATIVE FINDINGS: On cystoscopy, there is a good deal of debris present in the bladder in the form of white plaque-like material. I have biopsied these areas before and these were not concerning for any malignancy. There is an indwelling left ureteral stent with no apparent calcification. The stent was removed in toto and thrown away. A left retrograde pyelogram was performed, which did again reveal the presence of a relatively long stricture in the distal left ureter. It appears to be approximately 2-3 cm proximal to the left ureteral orifice. A fresh 6 x 26 cm double-J ureteral stent was inserted into the left collecting system without difficulty. Cystogram was performed where as the patient was filled comfortably with a total of 500 mL of contrast mix with water. The edges of the bladder wall are smooth and there are no obvious filling defects. There is also no evidence of reflux associated with the indwelling left ureteral stent. Drainage imaging reveals no extravasation and otherwise unremarkable exam. DESCRIPTION OF PROCEDURE: After informed consent was obtained, the patient was taken back to the operating room. She was transferred from the [facility] to the operating room table, where general anesthesia was induced. She was placed in the dorsal lithotomy position and her genitalia prepped and draped in a standard sterile fashion. She was given 2 g of IV Rocephin preoperatively. Her genitalia prepped and draped in a standard sterile fashion. Using a 30-degree lens on a 22.5-Salvadorean introducer, rigid cystoscope was inserted through the urethra into her bladder under direct visualization. Panendoscopic views of the bladder were then obtained. Please see above findings. Attention was turned to the indwelling left ureteral stent. This was removed to the level of the urethral meatus. A Sensor wire was inserted through the stent and up into the left collecting system. The existing stent was then removed fully intact, leaving the wire behind. The wire was then set aside to be used as a safety wire. I then advanced a cone-tipped catheter through the cystoscope and up to the level of the left ureteral orifice. Left retrograde pyelogram was performed. Please see above findings. I removed the cone-tipped catheter and then I irrigated the patient's bladder with a Sanjana syringe to get the white debris which I suspect is inflammatory debris out of her bladder. Once her bladder was irrigated, I passed a 6 x 26 cm double-J ureteral stent over the indwelling Sensor wire into the patient's bladder under direct visualization. The stent passed quite easily and a proximal coil was noted within the left renal pelvis. Once I have pulled the stent completely, an adequate distal coil was seen Electronically Signed By: ZAHRA MCNEIL MD 05/14/21 1239 PATIENT NAME: TERRI ULLOA OPERATIVE REPORT DATE OF : 50 REPORT #: [id number] PHYSICIAN: ZAHRA MCNEIL MD PCP: JANELLE CHU MD REPORT IS CONFIDENTIAL AND NOT TO BE RELEASED WITHOUT AUTHORIZATION [facility] [address] [place] [id number] Signed within the bladder. A 16-Salvadorean Adhikari catheter was then inserted into the patient's bladder and the balloon was filled with 8 mL of water. A cystogram was then performed where I gently instilled 500 mL of contrast into the bladder. We took multiple pictures during the filling and drainage phase. We also took one oblique picture. We were unable to get a lateral picture for logistical reasons. The patient's bladder was then flushed with water and then drained completely using the indwelling catheter. The Adhikari catheter was then removed fully intact. The procedure was then terminated. The patient tolerated the procedure well without any complication. She will now be transferred to the postanesthesia care unit in stable condition. DISPOSITION: The patient will be sent home today with Ultram 50 mg one tablet p.o. q.6 hours p.r.n. pain, dispense #40 along with Cipro 250 mg p.o. b.i.d. for a total of 7 days for treatment of her active UTI. The Cipro has been chosen based on multiple previous cultures which pretty much show the same sensitivity pattern. The Cipro has been renally dosed. I discussed the details of today's procedure with her and answered all of his questions. She now has a fresh stent and will be returning to see me in three months for a routine follow up with a UA check. MD NANO Levine/AGNIESZKA /[id number] Copies: ~ Electronically Signed By: ZAHRA MCNEIL MD 05/14/21 1239 PATIENT NAME: TERRI ULLOA OPERATIVE REPORT DATE OF : 50 REPORT #: [id number] PHYSICIAN: ZAHRA MCNEIL MD PCP: JANELLE CHU MD REPORT IS CONFIDENTIAL AND NOT TO BE RELEASED WITHOUT AUTHORIZATION
--- NOTE | 2021-05-14 12:48 | NUR ---
1240: DC INSTRUCTIONS PROVIDED AND DISCUSSED ORDERED. PT VOICES UNDERSTANDING AND DENIES QUESTIONS AND CONCERNS AT THIS TIME. WHEELS OFF OF UNIT IN OWN ELECTRIC WC. WALKED OUT BY THIS RN. TRANSFERS INTO VEHICLE INDEPENDENTLY AND APPROPRIATELY. NO PHYSICAL S/S OF DISTRESS AT THIS TIME
--- NOTE | 2021-05-14 13:58 | NUR ---
PT ALERT, ORIENTED AND SUPPORTED BY HER SUSAN. HE WILL LEAVE SOON A ND GET MEDS AT PHARMACY AND RETURN FOR DC. GAVE ENCOURAGEMENT, ANSWERED ALL QUESTIONS. PT REQUESTED PRAYER, WILL FOLLOW NEEDED
== END 2021-05-14 12:40 | disposition home or self-care (01) ==
LOC: OPS 07:17 → DS 07:17 → OPS 09:00 → DS 09:00 → OPS 12:40
PROVIDERS: ATTEND Urology
PROC: 0T778DZ Dilation of Left Ureter with Intraluminal Device, Via Natural or Artificial Opening Endoscopic (ICD-10-PCS; principal; 2021-05-14 09:00)
DX: N13.6 Pyonephrosis (principal); N39.0 Urinary tract infection, site not specified; E10.22 Type 1 diabetes mellitus with diabetic chronic kidney disease; I12.9 Hypertensive chronic kidney disease with stage 1 through stage 4 chronic kidney disease, or unspecified chronic kidney disease; N18.30 Chronic kidney disease, stage 3 unspecified; E03.9 Hypothyroidism, unspecified; K21.9 Gastro-esophageal reflux disease without esophagitis
CPT/HCPCS: 00910; 74420; C1769; C2617; J0696; J1100; J1885; J2250; J2405; J2704; J2765; J3010; J7121; Q9967

== ENCOUNTER 2022-04-08 08:55 | Day surgery (SDC) | payer MEDICARE, OTHER ==
[~2022-04-08] VITALS: Ht 175.3 cm; Wt 127.3 kg
--- NOTE | ~2022-04-08 | OR ---
[facility] [address] [place], [place] [address] Draft DATE OF OPERATION: 04/08/2022 SURGEON: Zahra Mcneil MD PREOPERATIVE DIAGNOSES: 1. 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 2. Chronic indwelling left ureteral stent. 3. Overactive bladder. POSTOPERATIVE DIAGNOSES: 1. 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 2. Chronic indwelling left ureteral stent. 3. Overactive bladder. 4. Persistent high caliber distal left ureteral stricture. NAMES OF PROCEDURES: 1. Diagnostic cystoscopy with left retrograde pyelogram. 2. Left ureteral stent exchange. 3. Botox bladder injection, 100 units. ANESTHESIA: General. ESTIMATED BLOOD LOSS: None. COMPLICATIONS: None. SPECIMENS: None. DRAINS: A newly placed 7-Sudanese x variable length indwelling left ureteral stent. INDICATIONS FOR PROCEDURE: Ms. Ulloa is a very pleasant 72-year-old female with a history of diabetes mellitus and recurrent UTIs. She also has a history of nephrolithiasis and a couple of years ago PATIENT NAME: TERRI ULLOA OPERATIVE REPORT DATE OF : 50 REPORT #: [id number] PHYSICIAN: ZAHRA MCNEIL MD PCP: JANELLE CHU MD REPORT IS CONFIDENTIAL AND NOT TO BE RELEASED WITHOUT AUTHORIZATION [facility] [address] [place], [place] [address], [place] [address] Draft underwent ureteroscopy for a relatively large stone that was imbedded in her distal left ureter. The stone ultimately ended up causing a good deal of significant stricture in the distal left ureter. She subsequently was evaluated by Dr. Laura At [facility] and he gave her an option to undergo left ureteral repair versus serial ureteral stent placement. She elected at that time to undergo serial left ureteral stent exchange about every 6 months or so. She presents today to undergo another routine stent exchange. On her last office visit, she reported worsening OAB symptoms while on maximum oxybutynin ER 15 mg daily. She was offered Botox bladder injection and has agreed to undergo that procedure today as well. OPERATIVE FINDINGS: 1. On cystoscopy, there was no evidence of any suspicious masses, lesions, or stones. Bilateral ureteral orifices are in their normal anatomic location. She does have a very mildly encrusted indwelling left ureteral stent. She also has a mild amount of sediment present in her bladder as well. 2. The patient's indwelling ureteral stent was removed fully intact. A fresh 7-Sudanese x variable length double-J ureteral stent was inserted into the left collecting system at the end of the procedure without difficulty. 3. Left retrograde pyelogram revealed a significantly tight distal left ureteral stricture measuring approximately 3 cm in length, maybe even more so. Just proximal to the stricture, there is a good deal of hydroureteronephrosis, severe in nature. I am almost wondering if her indwelling ureteral stent became transiently obstructed recently. 4. The patient received a total of 100 units of botulinum toxin today without incident. The posterior and lateral foster of the bladder were injected, avoiding the trigone and dome areas of the bladder. DESCRIPTION OF PROCEDURE: After informed consent was obtained, the patient was taken back to the operating room. She was transferred from the [facility] to the operating room table where general anesthesia was induced. She was placed in the dorsal lithotomy position and the genitalia prepped and draped in standard sterile fashion. Using a 30-degree lens on a 22.5-Sudanese introducer, rigid cystoscope was inserted through the urethra and into her bladder under direct visualization. Panendoscopic views of the bladder were then obtained. Please see above findings. The encrusted indwelling ureteral stent was removed fully intact and disposed. I then thoroughly irrigated the patient's bladder of all residual sediment using the cystoscope. I then filled the patient's bladder again to about 200 mL. I advanced the [employer] needle into the patient's bladder and protracted the needle to 3 mm. I then injected the patient's bladder with 100 units of botulinum toxin as per routine. The injection was performed in 0.5 mL aliquots, for a total of approximately 22 injections. Once the Botox injection was complete, I retracted the [employer] needle from the patient's bladder. The patient's bladder was then PATIENT NAME: TERRI ULLOA OPERATIVE REPORT DATE OF : 50 REPORT #: [id number] PHYSICIAN: ZAHRA MCNEIL MD PCP: JANELLE CHU MD REPORT IS CONFIDENTIAL AND NOT TO BE RELEASED WITHOUT AUTHORIZATION [facility] [address] [place] [address] Draft drained and then filled again with irrigation. I then turned my attention to the left ureteral orifice. I cannulated the left ureteral orifice distally using a cone-tipped catheter and performed a left retrograde pyelogram. Please see above findings. I then advanced a 0.035 Sensor wire through the left ureteral orifice and up into the left collecting system. The wire passed quite easily. I confirmed adequate placement of the wire on fluoroscopy. Over the wire, I passed a 7-Sudanese x variable length double-J ureteral stent into the left collecting system under direct visualization without difficulty. The stent landed nicely with a good coil present within the upper pole of the left kidney and an adequate coil noted in the bladder on cystoscopy. The patient's bladder was then drained and the cystoscope was removed. The procedure was then terminated. The patient tolerated the procedure well without any complication. She will now be transferred to the postanesthesia care unit in stable condition. DISPOSITION: I discussed the details of today's procedure with the patient's , Jacob, and answered all of his questions. I told the patient and her to discontinue her oxybutynin in approximately 5-7 days as the Botox should begin to take effect by then. She needs to take her oral antibiotics, Macrobid 100 mg p.o. daily for a total of 5 days. She was also given oxybutynin 5 mg one tablet p.o. q.6 hours p.r.n. pain, dispense #15. She will be scheduled to see my nurse in approximately 1 month to undergo a urine check and a postvoid residual check. She will see me in approximately 5 months for another H and P in preparation for another left ureteral stent exchange. MD NANO Levine/AGNIESZKA /[id number] Copies: ~ PATIENT NAME: TERRI ULLOA OPERATIVE REPORT DATE OF : 50 REPORT #: [id number] PHYSICIAN: ZAHRA MCNEIL MD PCP: JANELLE CHU MD REPORT IS CONFIDENTIAL AND NOT TO BE RELEASED WITHOUT AUTHORIZATION
[~2022-04-08 08:55] MED LIST changes: +BAYER CHEWABLE81 MG PO; +CELEBREX100 MG PO; +DIOVAN80 MG PO; +EXCEDRIN EXTRA1 EAC1 PO; +HUMALOG100 UNIT/1 SUB-Q; +HYDROXYZINE HCL50 MG PO; +PROAIR HFA8.5 GM INH; +VENTOLIN HFA18 GM INH
--- NOTE | 2022-04-08 12:35 | NUR ---
04/08/22 1235 Glenna Cheung 1222 PT ARRIVED IN PACU NON RESPONSIVE TO NOXIOUS STIMULI. 1224 PT REACTIVE. OPA REMOVED. 1235 AWAKENS TO VERBAL STIMULI AND THEN FALLS BACK TO SLEEP. NO C/O'S.
--- NOTE | 2022-04-08 13:00 | NUR ---
REPORTS ARM PAIN FROM BP CUFF IS WORSE THAN ANY PAIN RELATED TO PROCEDURE TODAY. BP REMAINS HIGH. PURCHASING AGENT AWARE
--- NOTE | 2022-04-08 13:16 | NUR ---
PROVIDED WITH CRACKERS AND WATER. PATIENT DENIES NAUSEA OR PAIN AT THIS POINT.
--- NOTE | 2022-04-08 14:29 | NUR ---
PT TRANSFERRS SELF TO BED SIDE COMMODE FOR 250ML CLEAR URINE VOID. DENIES PAIN RELATED TO SURGERY AT THIS POINT. PT TAKING SIPS OF WATER WHEN REVIEWING DISCHARGE INSTRUCTIONS. PT DRESSES SELF WITH LIMITED ASSISTANCE PRIOR TO DISCHARGE. INSTRUCTIONS REVIEWED WITH .
== END 2022-04-08 14:23 | disposition home or self-care (01) ==
LOC: DS 08:55
PROVIDERS: ATTEND Urology
PROC: 3E0K8GC Introduction of Other Therapeutic Substance into Genitourinary Tract, Via Natural or Artificial Opening Endoscopic (ICD-10-PCS; 2022-04-08)
PROC: 0T778DZ Dilation of Left Ureter with Intraluminal Device, Via Natural or Artificial Opening Endoscopic (ICD-10-PCS; principal; 2022-04-08 12:45)
PROC: 0TP98DZ Removal of Intraluminal Device from Ureter, Via Natural or Artificial Opening Endoscopic (ICD-10-PCS; 2022-04-08 12:45)
DX: N13.1 Hydronephrosis with ureteral stricture, not elsewhere classified (principal); N32.81 Overactive bladder; E11.22 Type 2 diabetes mellitus with diabetic chronic kidney disease; N18.30 Chronic kidney disease, stage 3 unspecified
CPT/HCPCS: 74420; C1769; C2617; J0585; J0690; J2405; J2704; J7121; Q9967

== ENCOUNTER 2022-11-25 07:53 | Day surgery (SDC) | payer MEDICARE, OTHER ==
[2022-11-20 13:41] VITALS: BP 123/64
[~2022-11-25] VITALS: Ht 175.3 cm; Wt 127.3 kg
--- NOTE | ~2022-11-25 | OR ---
[facility] [address] [place], [place] [address] Draft DATE OF OPERATION: 11/25/2022 SURGEON: Zahra Mcneil MD PREOPERATIVE DIAGNOSES: 1. History of high-grade distal left ureteral stricture with associated hydronephrosis. 2. Recurrent urinary tract infection. 3. Overactive bladder. POSTOPERATIVE DIAGNOSES: 1. History of high-grade distal left ureteral stricture with associated hydronephrosis. 2. Recurrent urinary tract infection. 3. Overactive bladder. NAMES OF PROCEDURES: 1. Diagnostic cystoscopy with left ureteral stent exchange. 2. Botox bladder injection, 100 units. ANESTHESIA: General. ESTIMATED BLOOD LOSS: None. SPECIMENS: None. DRAINS: A 6 x 26 cm double-J ureteral stent inserted into the left ureter. INDICATION FOR PROCEDURE: Ms. Ulloa is a very pleasant 72-year-old female with a history of overactive bladder and recurrent UTIs, who presents today to undergo another routine left ureteral stent exchange for management of her chronic high-grade distal left ureteral stricture. She has undergone multiple ureteral stent exchanges in the past for this same condition. She continues to defer any invasive intervention in the form of definitive repair of her distal left ureteral stricture in favor of routine ureteral stent exchanges. Of note, last month she did experience a more severe urinary tract infection than usual, which was managed by her primary care physician. She presents today with no complaints of any fevers or chills. Her most recent urine culture was negative. She is also awaiting PATIENT NAME: DUTERRI MONTIEL OPERATIVE REPORT DATE OF : 50 REPORT #: [id number] PHYSICIAN: ZAHRA MCNEIL MD PCP: JANELLE CHU MD REPORT IS CONFIDENTIAL AND NOT TO BE RELEASED WITHOUT AUTHORIZATION [facility] [address] [place], [place] [address] Draft another Botox bladder injection of 100 units today as she responds quite well to it. FINDINGS: 1. On cystoscopy, there was a good deal of debris present within her bladder. This was irrigated out during today's procedure. Her indwelling ureteral stent is also relatively heavily calcified on the distal coil only. 2. The patient's indwelling ureteral stent was removed and replaced by a fresh 6 x 26 cm double-J ureteral stent. 3. Once the patient's bladder was fully irrigated of all debris, she then underwent injection of a total of 100 units of botulinum toxin via 10 mL of reconstituted botulinum toxin, that was administered in 0.5 mL aliquots. DESCRIPTION OF PROCEDURE: After informed consent was obtained, the patient was taken back to the operating room. She was transferred from the [facility] to the operating room table, where general anesthesia was induced. She was placed in the dorsal lithotomy position and her genitalia were prepped and draped in a standard sterile fashion. Using a 30-degree lens on a 22.5-Turkmen introducer, rigid cystoscope was inserted through the urethra and into her bladder under direct visualization. Panendoscopic views of the bladder was then obtained. Please see the above findings. The heavily calcified stent was removed fully intact. The patient's bladder was then thoroughly irrigated with sterile saline as there was a good deal of sediment in the bladder along with calcified debris. A 0.035 Sensor wire was then inserted into the patient's left ureteral orifice and then up into the left collecting system. I confirmed proper placement of the wire on fluoroscopy. Over the wire, I passed a 6 x 26 double-J ureteral stent into the left collecting system under direct visualization without difficulty. When I pulled the wire, I did note an adequate proximal coil within the left renal pelvis. An adequate distal coil was noted on cystoscopy as well. I emptied the patient's bladder again and then filled it up again with sterile saline and then advanced the [employer] needle to 3 mm. I then performed Botox bladder injection of a total of 100 units in the standard fashion, avoiding the dome and trigone area of the bladder. All 20 injections were performed without difficulty. I then removed the [employer] needle and again irrigated the patient's bladder and emptied her bladder completely. The procedure was then terminated. The patient tolerated the procedure well without any complication. She will now be transferred to the postanesthesia care unit in stable condition. DISPOSITION: The patient will be sent home today with tramadol 50 mg 1 to 2 tablets p.o. q.6 hours p.r.n. pain, dispense #35, along with cephalexin 500 mg one tablet p.o. q.6 hours for a total of 7 days. She has been scheduled to return to clinic in February for re-evaluation and to prepare for her next indwelling ureteral stent exchange, which will take place in May of 2023. PATIENT NAME: TERRI ULLOA OPERATIVE REPORT DATE OF : 50 REPORT #: [id number] PHYSICIAN: ZAHRA MCNEIL MD PCP: JANELLE CHU MD REPORT IS CONFIDENTIAL AND NOT TO BE RELEASED WITHOUT AUTHORIZATION [address] [address] Draft MD NANO Levine/AGNIESZKA /[id number] Copies: ~ PATIENT NAME: TERRI ULLOA OPERATIVE REPORT DATE OF : 50 REPORT #: [id number] PHYSICIAN: ZAHRA MCNEIL MD PCP: JANELLE CHU MD REPORT IS CONFIDENTIAL AND NOT TO BE RELEASED WITHOUT AUTHORIZATION
[2022-11-25 08:12] VITALS: BP 126/60
[2022-11-25] MEDS ORDERED: NORVASC2.5 MG PO (08:19)
--- NOTE | 2022-11-25 10:25 | NUR ---
11/25/22 Brandy5 Joyce Carnes 1018- PT ARRIVES TO PACU AWAKE AND TALKING. PT REPORTS NO PAIN OR NAUSEA. RESP EVEN AND UNLABORED. OXYGEN SAT MID 90'S ON RA.
[2022-11-25 10:45] VITALS: BP 138/54
--- NOTE | 2022-11-25 11:29 | NUR ---
1045: PT RETURNS TO UNIT VIA STRETCHER FROM PACU. AWAKE AND ALERT ON ARRIVAL. VSS, RESP EVEN AND UNLABORED. DENIES PAIN AND NAUSEA. NYASIA PO INTAKE WELL. SCDS IN PLACE. POC DISCUSSED AND PT AGREEABLE AT THIS TIME. CALL LIGHT WITHIN REACH
[2022-11-25 11:45] VITALS: BP 143/65
--- NOTE | 2022-11-25 12:25 | NUR ---
1140: PT WITH CALL FOR THIS RN. REPORTS URGE TO VOID. SCDS REMOVED AND IV CONVERTED TO SL. VSS, RESP EVEN AND UNLABORED. PT DANGLES AT THE BEDSIDE, NYASIA WELL. DENIES DIZZINESS AND SOB. TRANSFERS TO BEDSIDE COMMODE WITH STANDBY FROM THIS RN. SUCCESSFUL FIRST POSTOP VOID, 200MLS. PT TRANSFERS BACK TO BED WITH STANDBY FROM THIS RN AND DRESSES FOR DC. 1150: SL REMOVED WITH CATH TIP INTACT AND PRESSURE APPLIED TO SITE, WNL. DC INSTRUCTIONS PROVIDED AND DISCUSSED ORDERED. PT VOICES UNDERSTANDING AND DENIES QUESTIONS AND CONCERNS AT THIS TIME. WHEELED OFF OF UNIT IN WC BY THIS RN FOR DC. TRANSFERS INTO VEHICLE WITH STANDBY FROM THIS RN. NO PHYSICAL S/S OF DISTRESS AT THIS TIME
== END 2022-11-25 11:50 | disposition home or self-care (01) ==
LOC: OPS 07:53 → DS 07:53 → OPS 09:30 → DS 09:30 → OPS 11:50
PROVIDERS: ATTEND Urology
PROC: 3E0K8GC Introduction of Other Therapeutic Substance into Genitourinary Tract, Via Natural or Artificial Opening Endoscopic (ICD-10-PCS; 2022-11-25)
PROC: 0TP98DZ Removal of Intraluminal Device from Ureter, Via Natural or Artificial Opening Endoscopic (ICD-10-PCS; principal; 2022-11-25 09:30)
PROC: 0T778DZ Dilation of Left Ureter with Intraluminal Device, Via Natural or Artificial Opening Endoscopic (ICD-10-PCS; 2022-11-25 09:30)
DX: N13.1 Hydronephrosis with ureteral stricture, not elsewhere classified (principal); N39.0 Urinary tract infection, site not specified; N32.81 Overactive bladder; E10.22 Type 1 diabetes mellitus with diabetic chronic kidney disease; N18.30 Chronic kidney disease, stage 3 unspecified; Z88.1 Allergy status to other antibiotic agents; Z88.0 Allergy status to penicillin; Z88.8 Allergy status to other drugs, medicaments and biological substances
CPT/HCPCS: 00860; 76000; J0131; J0585; J0690; J1335; J2704; J3490; J7121

== ENCOUNTER 2023-05-26 05:45 | Day surgery (SDC) | payer MEDICARE, OTHER ==
[2023-05-21 12:53] VITALS: BP 129/65
[~2023-05-26] VITALS: Ht 175.3 cm; Wt 121.8 kg
[~2023-05-26 05:45] MED LIST changes: +NORVASC2.5 MG PO
[2023-05-26 06:01] VITALS: BP 147/57
[2023-05-26] MEDS ORDERED: MULTI VITAMIN1 EACH PO (06:08)
--- NOTE | 2023-05-26 08:33 | NUR ---
05/26/23 0833 Fang Quiñones 0818 PT TO PACU PER STRETCHER FROM OR. RESPIRATIONS EVEN AND UNLABORED WITH MASK ON 6L. 0830 PT DROWSY, DENIES PAIN.
[2023-05-26 08:51] VITALS: BP 149/70
--- NOTE | 2023-05-26 09:18 | NUR ---
0895-PATIENT BACK TO ROOM FROM PACU ON . RECEIVED REPORT FROM LILI PEREZ. ENOCH IS AWAKE. RESP EVEN AND UNLABORED. DENIES PAIN. STATES A LITTLE CRAMPY. PATIENT IS NAUSEATED, DECLINES MEDICATION AT THIS TIME. PATIENT IS EATING ICE CHIPS. HOB ELEVATED. CALL LIGHT WITHIN REACH.
[2023-05-26 09:51] VITALS: BP 151/75
--- NOTE | 2023-05-26 15:31 | OR ---
[facility] [address] [facility] [place] [address] Signed DATE OF OPERATION: 05/26/2023 SURGEON: Zahra Mcneil MD PREOPERATIVE DIAGNOSES: 1. History of severe distal left ureteral stricture. 2. Chronic indwelling left ureteral stent. POSTOPERATIVE DIAGNOSES: 1. History of severe distal left ureteral stricture. 2. Chronic indwelling left ureteral stent. 3. Mild calcification and sediment associated with chronic indwelling left ureteral stent. NAMES OF PROCEDURES: 1. Diagnostic cystoscopy with bladder irrigation. 2. Left ureteral stent exchange. ANESTHESIA: MAC. ESTIMATED BLOOD LOSS: None. COMPLICATIONS: None. SPECIMENS: None. DRAINS: A 6 x 26 cm double-J ureteral stent inserted into the left collecting system. INDICATION FOR PROCEDURE: Ms. Ulloa is a very pleasant 73-year-old female, who is well-known to me. She has a history of severe distal left ureteral stricture and has been undergoing routine q.6 months left ureteral stent exchanges. Overall, she has done well with her chronic indwelling ureteral stents aside from some issues with recurrent mostly asymptomatic urinary tract infections. She also does have overactive bladder for which she takes oxybutynin 15 mg daily. She presents today to undergo another routine left ureteral Electronically Signed By: ZAHRA MCNEIL MD 05/26/23 1531 PATIENT NAME: TERRI ULLOA OPERATIVE REPORT DATE OF : 50 REPORT #: [id number] PHYSICIAN: ZAHRA MCNEIL MD PCP: JANELLE CHU MD REPORT IS CONFIDENTIAL AND NOT TO BE RELEASED WITHOUT AUTHORIZATION [facility] [address] [place], [place] [address] Signed stent exchange. OPERATIVE FINDINGS: 1. On cystoscopy, there was no evidence of any suspicious masses or lesions. Bilateral ureteral orifices are in their normal anatomic location. She has an indwelling left ureteral stent that is partially calcified, mostly with sediment versus true calcification. She also has a good deal of sediment present within her bladder. This did require a good deal of manual bladder irrigation using a Sanjana syringe to completely clear the bladder of all debris. 2. I was unable to pass a wire through the lumen of her indwelling left ureteral stent due to the fact that the stent was clogged with sediment. I therefore removed the stent in toto and then placed a fresh 6 x 26 cm double-J ureteral stent into the left collecting system. DESCRIPTION OF PROCEDURE: After informed consent was obtained, the patient was taken back to the operating room. She was transferred from the [facility] to the operating room table, where MAC anesthesia was induced. She was placed in the dorsal lithotomy position and her genitalia were prepped and draped in standard sterile fashion. Using a 30-degree lens on a 22.5-Kinyarwanda introducer, rigid cystoscope was inserted through the urethra and into her bladder under direct visualization. Approximately 450 mL of urine was drained from her bladder at that time. The urine was foul smelling and cloudy. I was also able to visualize [id number] amount of sediment present within the patient's bladder. The sediment had also formed a shell around the distal coil of her left stent. I was able to manipulate the stent to break the sediment off the distal coil of the left stent. I then irrigated the patient's bladder using a Sanjana syringe until all the debris was irrigated from her bladder. Using graspers, I pulled her indwelling ureteral stent to the level of her urethral meatus. I attempted to pass a 0.035 Sensor wire through the stent and into the left collecting system. This was unsuccessful due to the presence of a good deal of sediment within the lumen of the indwelling stent. I pulled the stent out completely and placed it in the trash can. I then changed my gloves and I inserted the cystoscope and then cannulated the left ureter using a 0.035 Sensor wire. Proper placement of the wire was confirmed on fluoroscopy. Over the wire, I passed a 6 x 26 cm double-J ureteral stent into the left collecting system. The stent passed easily and without difficulty. I pulled the wire and an adequate coil was noted within the left renal pelvis. Another adequate distal coil was noted on cystoscopy. The patient's bladder was then irrigated using water again and then drained completely. The cystoscope was then removed from the patient's bladder and the procedure was terminated. The patient tolerated the procedure well without any complication. She will now be transferred to the postanesthesia care unit in stable condition. DISPOSITION: Electronically Signed By: ZAHRA MCNEIL MD 05/26/23 1531 PATIENT NAME: TERRI ULLOA OPERATIVE REPORT DATE OF : 50 REPORT #: [id number] PHYSICIAN: ZAHRA MCNEIL MD PCP: JANELLE CHU MD REPORT IS CONFIDENTIAL AND NOT TO BE RELEASED WITHOUT AUTHORIZATION [address] [address] Signed I discussed the details of today's procedure with the patient's , Jacob, and answered all of his questions. She did not receive Botox injection today per her request. Overall, she feels that it is not cost-effective. She will continue her oxybutynin ER 15 mg daily for now. She is also deferring any oral pain control today. She will therefore be sent home on Bactrim single-strength one tablet p.o. b.i.d. for a total of 7 days. She will be scheduled return to clinic in September 2023 to prepare for her next left ureteral stent exchange. Zahra Mcneil MD AR/MODL /[id number] Copies: ~ Electronically Signed By: ZAHRA MCNEIL MD 05/26/23 1531 PATIENT NAME: TERRI ULLOA OPERATIVE REPORT DATE OF : 50 REPORT #: [id number] PHYSICIAN: ZAHRA MCNEIL MD PCP: JANELLE CHU MD REPORT IS CONFIDENTIAL AND NOT TO BE RELEASED WITHOUT AUTHORIZATION
--- NOTE | 2023-05-26 17:36 | NUR ---
0934-PATIENT REQUESTS NAUSEA MEDICATION. MED GIVEN PER EMAR.
--- NOTE | 2023-05-26 17:42 | NUR ---
0951-PATIENT IS LAYING IN BED AWAKE. RESP EVEN AND UNLABORED. REPORTS SOME CRAMPING BUT TOLERABLE AT THIS TIME. NAUSEA IS IMPROVING WITH THE MEDICATION. PATIENT UP TO BEDSIDE COMMODE AND VOIDS 100ML OF YELLOW URINE. PATIENT IS READY TO GO HOME. WILL HELP PATIENT GET DRESSED.
--- NOTE | 2023-05-26 17:47 | NUR ---
1006-WENT OVER DISCHARGE INSTRUCTIONS WITH PATIENT AND . ALL QUESTIONS ANSWERED. PATIENT AMBULATES TO WHEELCHAIR AND RIDE PROVIDED TO FRONT OF HOSPITAL WHERE WAS WAITING WITH THE CAR.
== END 2023-05-26 10:06 | disposition home or self-care (01) ==
LOC: OPS 05:45 → DS 05:45 → OPS 07:30 → DS 07:30 → OPS 10:06
PROVIDERS: ATTEND Urology
PROC: 0T778DZ Dilation of Left Ureter with Intraluminal Device, Via Natural or Artificial Opening Endoscopic (ICD-10-PCS; 2023-05-26)
PROC: 0TP98DZ Removal of Intraluminal Device from Ureter, Via Natural or Artificial Opening Endoscopic (ICD-10-PCS; principal; 2023-05-26 07:30)
DX: Z43.6 Encounter for attention to other artificial openings of urinary tract (principal); N13.5 Crossing vessel and stricture of ureter without hydronephrosis; E03.9 Hypothyroidism, unspecified; E10.22 Type 1 diabetes mellitus with diabetic chronic kidney disease; N18.30 Chronic kidney disease, stage 3 unspecified; E10.42 Type 1 diabetes mellitus with diabetic polyneuropathy; K21.9 Gastro-esophageal reflux disease without esophagitis; E78.00 Pure hypercholesterolemia, unspecified; Z79.899 Other long term (current) drug therapy
CPT/HCPCS: 00910; 76000; C1769; C2617; J0131; J1580; J2001; J2405; J2704; J3010; J7060; J7121

== ENCOUNTER 2023-06-30 08:38 | Day surgery (SDC) | payer MEDICARE ==
[~2023-06-30] VITALS: Ht 175.3 cm; Wt 118.2 kg
[2023-06-30 09:02] VITALS: BP 127/63
[2023-06-30 09:12] LABS: BILIRUBIN, URINE NEGATIVE (negative); BLOOD/HGB, URINE MODERATE (Negative); KETONE, URINE NEGATIVE (Negative); PH, URINE 8 (5-7)
[2023-06-30 09:13] LABS: LEUK ESTERASE, URINE POSITVE (negative); NITRITE, URINE NEGATIVE (negative)
[2023-06-30 09:16] LABS: RED BLOOD CELLS, URINE 0-1 /hpf (0-5); WHITE BLOOD CELLS, URINE >50 /HPF (0-5)
[2023-06-30 09:17] LABS: BACTERIA, URINE 2+ /hpf (negative); CASTS, URINE NONE SEEN \\lpf; COLLECTION TYPE, URINE CLEAN CATCH; CRYSTALS, URINE NONE SEEN (0-1+); EPITHELIAL CELLS, URINE SQUAMOUS 1+ /lpf (0-1+); REFLEX CULTURE, URINE Yes (No)
[2023-06-30 09:40] LABS: BASOPHILS 0.4 % (0-2); EOSINOPHILS 3.2 % (0-6); HEMATOCRIT 40.2 % (35.0-50.0); LYMPHOCYTES 12.3 % (24-44); MCH 30.1 (27-36); MCHC 32.3 g/dl (30-36); MCV 93.3 fl (81-99); MONOCYTES 7.3 % (0-12); NEUTROPHILS 76.8 % (39-80); PLATELET COUNT 328 K/uL (140-440); RBC 4.31 M/ul (4.3-5.7); RDW 13.9 (10.5-15.0)
[2023-06-30 09:50] LABS: ANION GAP 13.2 (7-21); BUN/CREATININE RATIO 17.96 (6.0-28.6); CALCIUM 9.6 mg/dL (8.5-10.1); CREATININE, SERUM 1.67 mg/dL (0.55-1.02); POTASSIUM 4.2 mmol/L (3.5-5.1)
[2023-06-30 14:09] VITALS: BP 141/77
--- NOTE | 2023-06-30 14:33 | NUR ---
06/30/23 1433 Heather Amato 1325- PT PRESENTS TO PACU, SEMI SPIVEY POSITION. LR INFUSING TO RW IV. PT IS DROWSY AND RESTING BUT WAKES EASILY TO VERBAL STIMULI. PT ON ROOM AIR, ALL MONITORS APPLIED. NO BLEEDING NOTED FROM URETHRA. ABD SOFT AND NON DISTENDED. DENIES PAIN, JUST FEELS "RAW DOWN THERE". 1331- PT RESTING INTERMITTENTLY, O2 SATS DROP DOWN TO 87-88% ON ROOM AIR. ENCOURAGED TO DEEP BREATH AND COUGH. PT WEARS HOME O2 AT NIGHT, 2L PER NC APPLIED AT THIS TIME. 1337- PT HAS INSULIN PUMP ON, PUMP ALARMED AND PT DIDN'T KNOW WHY. PT IS STILL NOT FULLY AWAKE. REQUESTS TO CHECK CBG INSTEAD OF LOOKING AT PUMP. CBG 155. 1341- 1ST LITER LR COMPLETED. 2ND LITER STARTED AT THIS TIME. 1353- PT C/O SOME NAUSEA. REPORTS SHE DOESN'T FEEL LIKE SHE WILL THROW UP BUT HER STOMACH ISN'T SETTLED. MEDICATED WITH ZOFRAN PER ORDERS. 1400- PT REPORTS NAUSEA HAS IMPROVED, DENIES PAIN BESIDES THE "RAW" FEELING. PT TO GO BACK TO DAY SURGERY. 1405- PT BACK TO DAY SURGERY VIA BED, REPORT TO TALAT PEREZ AT BEDSIDE. PT ALERT AND ORIENTED, ANSWERING QUESTIONS APPROPRIATELY. REMAINS ON 2L PER NC AND LR HANGING TO RW. AT BEDSIDE, CARE OF PT TURNED OVER AT THIS TIME.
[2023-06-30 14:55] VITALS: BP 134/60
--- NOTE | 2023-06-30 15:12 | NUR ---
LE 1405 PATIENT INTO ROOM TREATMENT ROOM. REPORT RECIEVED FROM ANA CHASE. PATIENT BREATHING EQUAL AND UNLABORED. OXYGEN SATURATIONS ABOVE 90% ON 2 LITERS OF OXYGEN. PATIENT DENIES BEING IN PAIN AND BEING NAUSEATED. IVF INFUSING. SCD'S ON. NO DRAINAGE AT THIS TIME. PATIENT GIVEN WATER AND CRACKERS. LE 1445 PATIENT USED WHEELCHAIR TO GO TO THE BATHROOM. PATIENT VOIDED 100 MLS OF YELLOW URINE. PATIENT DRESSED SELF AND TOLERATED IT WELL. LE 1505 PATIENT DISCHARGE INSTRUCTIONS GIVEN. PATIENT IV D/C'D WNL. NO QUESTIONS AT THIS TIME. PATIENT WHEELED OUT OF FACILITY NO FUTHER NEEDS.
--- NOTE | 2023-06-30 18:27 | OR ---
[facility] [address], [place] [address] Signed DATE OF OPERATION: 06/30/2023 SURGEON: Zahra Mcneil MD PREOPERATIVE DIAGNOSES: 1. Recurrent left ureteral stricture, status post recent left ureteral stent exchange. 2. Persistent left flank discomfort secondary to existing indwelling left ureteral stent. POSTOPERATIVE DIAGNOSES: 1. Recurrent left ureteral stricture, status post recent left ureteral stent exchange. 2. Persistent left flank discomfort secondary to existing indwelling left ureteral stent. NAME OF PROCEDURES: Diagnostic cystoscopy with left ureteral stent exchange. ANESTHESIA: General. ESTIMATED BLOOD LOSS: Minimal. COMPLICATIONS: None. SPECIMENS: None. DRAINS: A 6 x 26 cm Coloplast double-J ureteral stent inserted into the left collecting system. INDICATION FOR PROCEDURE: Terri is a very pleasant 73-year-old female, who is well-known to me. She has a history of recurrent left ureteral stricture and has been managing her stricture with serial ureteral stent exchanges q. 6 months or so. Around a month ago, she underwent a routine left ureteral stent exchange. At that time, I noticed a significant amount of obstruction of her Coloplast stent, so I made the decision to change her stent to the standard [employer] stent. The procedure was performed without difficulty. However, a few days later, the patient contacted the clinic complaining of significant left-sided flank pain, nausea and vomiting and gross hematuria. She underwent a KUB, which confirmed normal placement of the stent. She gave herself adequate time to Electronically Signed By: ZAHRA CMNEIL MD 06/30/23 1827 PATIENT NAME: TERRI MEJIA OPERATIVE REPORT DATE OF : 50 REPORT #: [id number] PHYSICIAN: ZAHRA MCNEIL MD PCP: JANELLE CHU MD REPORT IS CONFIDENTIAL AND NOT TO BE RELEASED WITHOUT AUTHORIZATION [facility] [address] [place] [id number] Signed attempt to acclimate to the new [employer] stent, however, she was unsuccessful. We therefore made the decision to move with an another left ureteral exchange. At this time a new Coloplast stent will be placed instead of a [employer] stent. She presents today to undergo the aforementioned procedure. OPERATIVE FINDINGS: 1. On cystoscopy, there was good deal of debris present within her bladder. The indwelling left ureteral stent is present and is noted to be already heavily calcified despite only being present in her bladder for one month. 2. Her indwelling left ureteral stent was removed fully intact. Her bladder was thoroughly irrigated of any debris. A fresh 6 x 26 double-J Coloplast stent was then inserted into the patient's left collecting system under direct visualization without difficulty. DESCRIPTION OF PROCEDURE: After informed consent was obtained, the patient was taken back to the operating room. [facility] was [facility] to the operating room table, where general anesthesia was induced. She was placed in the dorsal lithotomy position and her genitalia were prepped and draped in standard sterile fashion. Using a 30-degree lens on a 22.5-Omani introducer, rigid cystoscope was inserted through the urethra and into her bladder under direct visualization. Panendoscopic views of bladder were then obtained. Please see above findings. The indwelling ureteral stent was noted to be fairly heavily calcified despite being present only for about a month. Graspers were used to remove the indwelling ureteral stent fully intact. This was performed without difficulty. I then changed my gloves and then used a Sanjana syringe to thoroughly irrigate the patient's bladder of any other debris. I then passed a 0.035 Sensor wire into the left ureter under direct visualization up into the left collecting system. Adequate placement of the wire was confirmed on fluoroscopy. Over the wire, I passed a 6 x 26 cm Coloplast double-J ureteral stent into the left collecting system. The stent passed easily and was placed in a good position within the left collecting system. The patient's bladder was then drained and the cystoscope was removed. The procedure was then terminated. The patient tolerated the procedure well without any complication. She will now be transferred to the postanesthesia care unit in stable condition. DISPOSITION: I discussed the details of today's procedure with the patient's and informed him that her indwelling stent was relatively well calcified despite being present for only one month. This is likely due to significant dehydration, which was made worse by her nausea and vomiting for the past month that she says was related to her indwelling ureteral stent. She now has a fresh Coloplast stent which has always been comfortable for her in the past. She is finally willing to return back to [place] to be evaluated for definitive left ureteral repair for her recurrent left ureteral stricture. A Electronically Signed By: ZAHRA MCNEIL MD 06/30/23 3160 PATIENT NAME: TERRI MEJIA OPERATIVE REPORT DATE OF : 50 REPORT #: [id number] PHYSICIAN: ZAHRA MCNEIL MD PCP: JANELLE CHU MD REPORT IS CONFIDENTIAL AND NOT TO BE RELEASED WITHOUT AUTHORIZATION [address] [address] Signed referral will be placed to [facility] today. Otherwise, she was sent home today on cefdinir 300 mg one tablet p.o. b.i.d. for a total of 7 days. She will be scheduled to return to clinic in approximately four months to decide the next step in her plan of care. MD NANO Levine/AGNIESZKA /[id number] Copies: ~ Electronically Signed By: ZAHRA MCNEIL MD 06/30/23 1827 PATIENT NAME: TERRI MEJIA OPERATIVE REPORT DATE OF : 50 REPORT #: [id number] PHYSICIAN: ZAHRA MCNEIL MD PCP: JANELLE CHU MD REPORT IS CONFIDENTIAL AND NOT TO BE RELEASED WITHOUT AUTHORIZATION
== END 2023-06-30 15:05 | disposition home or self-care (01) ==
LOC: OPS 08:38 → DS 08:38 → OPS 08:43 → DS 12:00 → OPS 12:00
PROVIDERS: ATTEND Urology
PROC: 0T7D8DZ Dilation of Urethra with Intraluminal Device, Via Natural or Artificial Opening Endoscopic (ICD-10-PCS; 2023-06-30)
PROC: 0TPD8DZ Removal of Intraluminal Device from Urethra, Via Natural or Artificial Opening Endoscopic (ICD-10-PCS; principal; 2023-06-30 12:00)
DX: N13.5 Crossing vessel and stricture of ureter without hydronephrosis (principal); E10.22 Type 1 diabetes mellitus with diabetic chronic kidney disease; N18.30 Chronic kidney disease, stage 3 unspecified; E10.42 Type 1 diabetes mellitus with diabetic polyneuropathy; E03.9 Hypothyroidism, unspecified; E78.00 Pure hypercholesterolemia, unspecified; Z79.899 Other long term (current) drug therapy; Z87.891 Personal history of nicotine dependence; Z88.0 Allergy status to penicillin; Z88.8 Allergy status to other drugs, medicaments and biological substances
CPT/HCPCS: 00910; 36415; 76000; 80048; 81001; 85025; 87088; C2617; J0131; J0690; J0696; J2001; J2405; J2704; J3010; J7121

== ENCOUNTER 2024-03-01 07:48 | Day surgery (SDC) | payer MEDICARE ==
[2024-02-25 12:28] VITALS: BP 117/72
[~2024-03-01] VITALS: Ht 175.3 cm; Wt 108.3 kg
[~2024-03-01 07:48] MED LIST changes: +CEFAZOLIN SODIUM 2 GM/20 ML SYR IV SCH; +HUMALOG100 UNITS/; +HUMALOG100 UNITS/ IV; +IBLOOD GLUCOSE TEST STRIP 1 EA TEST VI PRN; +IPRAT-ALBUT 0.5-3 ML INH; +KETOROLAC TROMETHAMINE 30 MG/ML VIAL IV PRN; +KRILL OIL500 MG PO; +LACTATED RINGER'S 1,000 ML IV SCH; +LIDOCAINE HCL 1% 5 ML SDV INJ ONE; +MUCOSA DM TABL1 EACH PO; +OXYBUTYNIN CHLO15 MG; +PHENAZOPYRIDINE HCL 95 MG TAB PO PRN; +TIZANIDINE HCL4 MG PO; +TRAMADOL HCL 50 MG TAB PO PRN; +ondansetron HCL 4 MG/2 ML VIAL IV PRN
[2024-03-01 08:04] VITALS: BP 144/85
[2024-03-01] MEDS ORDERED: GERI-KOT8.6 MG PO (08:13)
[2024-03-01] MEDS ORDERED: iopamidoL 30 ML VIAL ONE (09:00)
[2024-03-01] MEDS ORDERED: SODIUM CHLORIDE 0.9% 40 ML IV ONE (09:01)
[2024-03-01] MEDS ORDERED: LIDOCAINE HCL 2% 5 ML SDV ONE (09:36)
[2024-03-01] MEDS ORDERED: propofoL 200 MG/20 ML VIAL ONE (09:36)
[2024-03-01] MEDS ORDERED: fentaNYL citrate 100 MCG/2 ML VIAL ONE (09:37)
[2024-03-01] MEDS ORDERED: ondansetron HCL 4 MG/2 ML VIAL IV PRN (10:45)
[2024-03-01] MEDS ORDERED: NALOXONE HCL 0.4 MG SYR IV PRN (10:45)
[2024-03-01] MEDS ORDERED: IBLOOD GLUCOSE TEST STRIP 1 EA TEST VI PRN (10:45)
[2024-03-01] MEDS ORDERED: fentaNYL citrate 50 MCG/ML SDV IV PRN (10:45)
[2024-03-01] MEDS ORDERED: ePHEDrine sulfate 50 MG/ML AMP ONE (10:49)
[2024-03-01] MEDS ORDERED: LACTATED RINGER'S 1,000 ML IV ONE (11:00)
--- NOTE | 2024-03-01 12:05 | NUR ---
PT ARRIVES TO DS FROM PACU VIA STRETCHER. PT IS A&O AND REPORTS PAIN TOLERABLE THIS TIME. PT ASKING QUESTIONS APPROPRIATELY. PT ON RA W/O2 >90%, RESPIRATIONS EVEN AND UNLABORED AT THIS TIME. PT HAS TEA THAT SHE BROUGHT AND PREFERS TO DRINK, SALTINE CRACKERS PROVIDED WELL. REPORT RECEIVED FROM JUSTIN PEREZ. TARUN COLLADO WOULD LIKE TO VISIT WITH PT BEFORE DISCHARGE, PT STATES VERBAL UNDERSTANDING. NOW AT BEDSIDE. CALL LIGHT WITHIN REACH. PT STATES NO FURTHER NEEDS AT THIS TIME.
[2024-03-01 12:07] VITALS: BP 153/89
--- NOTE | 2024-03-01 12:24 | NUR ---
ANSWERED PT CALL LIGHT D/T NEED TO USE RESTROOM. BC AT BEDSIDE. PT TRANSFERS SELF TO AND DOES NOT VOID AT THIS TIME, PASSES GAS. PT REQUESTS TO GET DRESSED AT THIS TIME. AT BEDSIDE TO ASSIST. CALL LIGHT WITHIN REACH. PT STATES NO FURTHER NEEDS AT THIS TIME.
--- NOTE | 2024-03-01 12:31 | NUR ---
03/01/24 1231 Glenan Cheung 1134 PT ARRIVED IN PACU WITH OPA IN PLACE. 1136 BLOOD SUGAR 121 ON PT'S OWN PUMP. ANESTHESIA AWARE WITH NO NEW ORDERS. 1137 REACTIVE. OPA REMOVED. 1150 GLASSES RETURNED TO PT. NO C/O'S. 1205 TO DS. REPORT GIVEN TO ANA.
--- NOTE | 2024-03-01 13:15 | NUR ---
TARUN COLLADO IN ROOM W/PT AT THIS TIME DISCUSSING PLAN OF CARE W/PT. ALL QUESTIONS ANSWERED AT THIS TIME. PT TRANSFERS SELF FROM BED TO MOTORIZED WC. CALL LIGHT WITHIN REACH, AT BEDSIDE. VS TAKEN.
[2024-03-01 13:25] VITALS: BP 156/61
== END 2024-03-01 13:30 | disposition home or self-care (01) ==
LOC: DS 07:48 → OPS 07:48 → DS 09:55 → OPS 09:55
PROVIDERS: ATTEND Urology
PROC: 0TP98DZ Removal of Intraluminal Device from Ureter, Via Natural or Artificial Opening Endoscopic (ICD-10-PCS; 2024-03-01)
PROC: BT1FZZZ Fluoroscopy of Left Kidney, Ureter and Bladder (ICD-10-PCS; principal; 2024-03-01 09:55)
DX: N13.5 Crossing vessel and stricture of ureter without hydronephrosis (principal); N39.0 Urinary tract infection, site not specified; G89.29 Other chronic pain; E10.22 Type 1 diabetes mellitus with diabetic chronic kidney disease; N18.30 Chronic kidney disease, stage 3 unspecified; E10.42 Type 1 diabetes mellitus with diabetic polyneuropathy; E03.9 Hypothyroidism, unspecified; K21.9 Gastro-esophageal reflux disease without esophagitis; E78.00 Pure hypercholesterolemia, unspecified; Z79.899 Other long term (current) drug therapy; Z88.0 Allergy status to penicillin; Z88.8 Allergy status to other drugs, medicaments and biological substances
CPT/HCPCS: 00910; 76000; C1758; C1769; J0690; J2001; J2704; J3010; J7121

== ENCOUNTER 2024-04-18 10:29 | Emergency (ER) | payer MEDICARE ==
[~2024-04-18] VITALS: Ht 175.3 cm; Wt 104.8 kg
[~2024-04-18 10:29] MED LIST changes: -CEFAZOLIN SODIUM 2 GM/20 ML SYR IV SCH; +GERI-KOT8.6 MG PO; -IBLOOD GLUCOSE TEST STRIP 1 EA TEST VI PRN; -KETOROLAC TROMETHAMINE 30 MG/ML VIAL IV PRN; -LACTATED RINGER'S 1,000 ML IV SCH; -LIDOCAINE HCL 1% 5 ML SDV INJ ONE; -PHENAZOPYRIDINE HCL 95 MG TAB PO PRN; -TRAMADOL HCL 50 MG TAB PO PRN; -ondansetron HCL 4 MG/2 ML VIAL IV PRN
[2024-04-18] MEDS ORDERED: ondansetron HCL 4 MG/2 ML VIAL IV ONE (10:45)
[2024-04-18] MEDS ORDERED: METOCLOPRAMIDE HCL 10 MG/2 ML SDV IV ONE (11:00)
[2024-04-18] MEDS ORDERED: MORPHINE SULFATE 10 MG/ML VIAL IV ONE (11:00)
[2024-04-18] MEDS ORDERED: SODIUM CHLORIDE 0.9% 1,000 ML IV PRN (11:00)
[2024-04-18 11:16] LABS: BILIRUBIN, URINE NEGATIVE (negative); BLOOD/HGB, URINE LARGE (Negative); KETONE, URINE NEGATIVE (Negative); LEUK ESTERASE, URINE SMALL (negative); NITRITE, URINE NEGATIVE (negative)
[2024-04-18 11:22] LABS: EPITHELIAL CELLS, URINE SQUAMOUS 1+ /lpf (0-1+); RED BLOOD CELLS, URINE >50 /hpf (0-5)
[2024-04-18 11:25] LABS: BACTERIA, URINE 1+ /hpf (negative); CRYSTALS, URINE AMORPHOUS URATES 1+ (0-1+); WHITE BLOOD CELLS, URINE 21-40 /HPF (0-5)
[2024-04-18 11:26] LABS: CASTS, URINE NONE SEEN \\lpf; COLLECTION TYPE, URINE CLEAN CATCH; REFLEX CULTURE, URINE Yes (No)
[2024-04-18 11:31] LABS: BASOPHILS 0.5 % (0-2); EOSINOPHILS 0.3 % (0-6); HEMOGLOBIN 14.5 g/dL (12.0-18.0); LYMPHOCYTES 6.8 % (24-44); MCHC 33.1 g/dl (30-36); MCV 87.8 fl (81-99); MONOCYTES 5.2 % (0-12); NEUTROPHILS 87.2 % (39-80); PLATELET COUNT 338 K/uL (140-440); RBC 5.01 M/ul (4.3-5.7); RDW 16.7 (10.5-15.0)
[2024-04-18 11:46] LABS: ALBUMIN 3.5 g/dL (3.4-5.0); ALBUMIN/GLOBULIN RATIO 0.81 (1.1-2.4); ANION GAP 12.5 (7-21); BILIRUBIN, TOTAL 0.4 ng/dL (0.2-1.0); BUN/CREATININE RATIO 15.06 (6.0-28.6); CALCIUM 9.6 mg/dL (8.5-10.1); CREATININE, SERUM 1.46 mg/dL (0.55-1.02); MAGNESIUM 1.5 mg/dL (1.8-2.4); POTASSIUM 4.5 mmol/L (3.5-5.1); PROTEIN, TOTAL 7.8 g/dL (6.4-8.2)
[2024-04-18 12:25] LABS: LACTIC ACID, BLOOD 1.1 mmol/L (0.4-2.0)
[2024-04-18] MEDS ORDERED: CEFTRIAXONE/SODIUM CHLORIDE 2 GM/100 ML PIGGYBACK IV ONE (12:45)
[2024-04-18] MEDS ORDERED: TRAMADOL HCL50 MG PO (13:04)
[2024-04-18] MEDS ORDERED: TRAZODONE HCL150 MG PO (13:05)
[2024-04-18] MEDS ORDERED: CEFPODOXIME PR200 MG PO (14:00)
[2024-04-18] MEDS ORDERED: ONDANSETRON ODT8 MG PO (14:00)
[2024-04-18 14:20] VITALS: BP 133/59
== END 2024-04-18 14:20 | disposition home or self-care (01) ==
LOC: ED 10:29
PROVIDERS: Emergency Medicine
DX: T83.092A Other mechanical complication of nephrostomy catheter, initial encounter (principal); Y73.8 Miscellaneous gastroenterology and urology devices associated with adverse incidents, not elsewhere classified; N39.0 Urinary tract infection, site not specified; E83.42 Hypomagnesemia; E11.22 Type 2 diabetes mellitus with diabetic chronic kidney disease; N18.30 Chronic kidney disease, stage 3 unspecified; E03.9 Hypothyroidism, unspecified; Z87.891 Personal history of nicotine dependence; Z79.4 Long term (current) use of insulin; Z79.899 Other long term (current) drug therapy; Z79.890 Hormone replacement therapy; Z88.0 Allergy status to penicillin; Z88.5 Allergy status to narcotic agent; Z88.8 Allergy status to other drugs, medicaments and biological substances; Z91.048 Other nonmedicinal substance allergy status
CPT/HCPCS: 36415; 80053; 81001; 83605; 83690; 83735; 85025; 87088; 96374; 96375; 99284-25; J0696; J2270; J2405; J2765; J7030